=== PATIENT | male | born 1955 | race Hispanic/Latino ===

== ENCOUNTER 2017-10-23 09:36 | Emergency (ER) | payer MEDICARE, BC ==
[2017-10-23] MEDS ORDERED: Nitroglycerin 2% Ointment 1 INCH/1 GM Packet ONE (10:03)
--- NOTE | 2017-10-23 10:28 | RAD ---
FRONTAL RADIOGRAPH CHEST: Date: 10/23/17 COMPARISON: 09/30/15. HISTORY: Chest pain, dialysis patient. FINDINGS: There is prominence of the cardiac silhouette, stable. There is stable elevation of the right hemidia phragm. Stable midline sternotomy wires are noted. No lobar consolidation or alveolar edema. IMPRESSION: Stable appearance of the chest. No acute findings. POS: [facility]
[2017-10-23 10:32] LABS: INR-International Normal Ratio 1.1; PTT 32.5 SEC (22.9-36.1); Prothrombin Time 14.5 SEC (12.0-14.7)
[2017-10-23 10:51] LABS: ALT (SGPT) 15 U/L (8-55); AST (SGOT) 11 U/L (5-34); Albumin 4.2 g/dL (3.4-4.8); Alkaline Phosphatase 85 U/L (40-150); Anion Gap 18 mmol/L (10-20); BUN (Urea Nitrogen) 23 mg/dL (8.4-25.7); Bilirubin, Total 0.7 mg/dL (0.2-1.2); CK (CPK) 145 U/L (30-200); Calc. Creatinine Clearance 0 mL/min (70-130); Calcium 9.6 mg/dL (7.8-10.44); Carbon Dioxide 29 mmol/L (23-31); Chloride 92 mmol/L (98-107); Estimated GFR-MDRD 9; Glucose 153 mg/dL (80-115); Lipase 81 U/L (8-78); Potassium 3.6 mmol/L (3.5-5.1); Protein, Total 8.2 g/dL (5.8-8.1); Sodium 135 mmol/L (136-145)
[2017-10-23 10:55] LABS: CKMB 2.8 ng/mL (0-6.6)
[2017-10-23 10:57] LABS: #Eosinphils 0.1 thou/uL (0.0-0.7); #Lymphocytes 0.8 thou/uL (1.20-3.40); #Monocytes 0.4 thou/uL (0.11-0.59); #Neutrophils 5.2 thou/uL (1.40-6.50); %Basophils 0.4 % (0.0-1.0); %Eosinophils 1.1 % (0.0-10.0); %Lymphocytes 12.2 % (21.0-51.0); %Monocytes 5.8 % (0.0-10.0); %Neutrophils 80.6 % (42.0-75.0); Hemoglobin 12.6 g/dL (14.0-18.0); Large Platelets SLIGHT; MDiff Complete? YES; Mean Corpuscular HGB CONC 32.7 g/dL (32.0-36.0); Mean Corpuscular Hemoglobin 30.3 pg (27.0-31.0); Mean Corpuscular Volume 92.6 fl (80.0-94.0); Mean Platelet Volume 10.2 fL (7.4-10.4); PLT Morphology Comment Appears Decreased; Platelet Count 106 thou/uL (130-400); RBC Distribution Width 14.3 % (11.5-14.5); Red Blood Cell (RBC) Count 4.15 mill/uL (4.70-6.10); White Blood Cell (WBC) Count 6.4 thou/uL (4.8-10.8)
== END 2017-10-23 12:36 | disposition home or self-care (01) ==
LOC: ERS 09:36
DX: R07.89 Other chest pain (principal); I25.10 Atherosclerotic heart disease of native coronary artery without angina pectoris; E11.9 Type 2 diabetes mellitus without complications; E78.5 Hyperlipidemia, unspecified; I11.0 Hypertensive heart disease with heart failure; I50.9 Heart failure, unspecified; Z79.4 Long term (current) use of insulin; Z79.899 Other long term (current) drug therapy; Z79.82 Long term (current) use of aspirin; Z99.2 Dependence on renal dialysis
CPT/HCPCS: 36415; 36416; 71045; 80053; 82553; 83690; 83880; 84484; 85025; 85610; 85730; 93005; 94760

== ENCOUNTER 2017-12-10 22:07 | Inpatient (IN) | payer MEDICARE, BC ==
[2017-12-10 22:30] LABS: Bilirubin Negative (Negative); Blood, Urine Large (Negative); Clarity TURBID (Clear); Glucose, Urine (Dipstick) 500 mg/dL (Negative); Leukocyte Trace (Negative); Nitrite Negative (Negative); Protein, Urine (Dipstick) 300 mg/dL (Neg-Trace); Specific Gravity, Urine 1.021 (1.002-1.036); Urobilinogen 0.2 mg/dL (0.2-1.0); pH, Urine 7.5 (5.0-9.0)
[2017-12-10 22:31] LABS: White Blood Cell (WBC) Count 11.2 thou/uL (4.8-10.8)
[2017-12-10 22:31] LABS: Bacteria/HPF 3+ HPF (None Seen); Squamous Epithelial 0-3 HPF (0-3)
[2017-12-10 22:32] LABS: Pathc Cast-AUWi Flag 3.11 (0-2.49); Sperm-AUWi Flag 16322.9 (0-9.9)
[2017-12-10 22:32] LABS: #Eosinphils 0.1 thou/uL (0.0-0.7); #Lymphocytes 1.1 thou/uL (1.20-3.40); #Monocytes 0.8 thou/uL (0.11-0.59); #Neutrophils 9.2 thou/uL (1.40-6.50); %Basophils 0.2 % (0.0-1.0); %Eosinophils 1.1 % (0.0-10.0); %Lymphocytes 10.2 % (21.0-51.0); %Monocytes 7.1 % (0.0-10.0); %Neutrophils 81.4 % (42.0-75.0); Hemoglobin 10.1 g/dL (14.0-18.0); Mean Corpuscular HGB CONC 32.8 g/dL (32.0-36.0); Mean Corpuscular Hemoglobin 30.2 pg (27.0-31.0); Mean Corpuscular Volume 91.9 fl (80.0-94.0); Mean Platelet Volume 9.6 fL (7.4-10.4); Platelet Count 104 thou/uL (130-400); RBC Distribution Width 14.3 % (11.5-14.5); Red Blood Cell (RBC) Count 3.34 mill/uL (4.70-6.10)
--- NOTE | 2017-12-10 22:39 | RAD ---
CHEST ONE VIEW: 12/10/17 HISTORY: Sepsis. COMPARISON: 10/23/17. FINDINGS: The cardiac silhouette is magnified and upper limits of normal in size. Pulmonary vasculature is slig htly engorged. Mediastinum is midline with postoperative changes and coronary artery stents. There is no lobar consolidation or evidence of pneumothorax. IMPRESSION: Mild pulmonary vascular congestion. POS: [facility]
[2017-12-10 22:40] LABS: Sperm/HPF 4+ HPF (None Seen)
[2017-12-10 22:41] LABS: RBC/HPF 21-50 HPF (0-3)
[2017-12-10 22:42] LABS: Hyaline Casts/LPF 0-3 HYALINE CAST LPF (0-3 Hyaline)
[2017-12-10 22:58] LABS: ALT (SGPT) 43 U/L (8-55); AST (SGOT) 26 U/L (5-34); Albumin 3.9 g/dL (3.4-4.8); Alkaline Phosphatase 147 U/L (40-150); Anion Gap 17 mmol/L (10-20); BUN (Urea Nitrogen) 51 mg/dL (8.4-25.7); Bilirubin, Total 0.5 mg/dL (0.2-1.2); Calc. Creatinine Clearance 0 mL/min (70-130); Calcium 9.4 mg/dL (7.8-10.44); Carbon Dioxide 28 mmol/L (23-31); Chloride 93 mmol/L (98-107); Estimated GFR-MDRD 4; Globulin 3.8 g/dL (2.4-3.5); Glucose 126 mg/dL (80-115); Protein, Total 7.7 g/dL (5.8-8.1); Sodium 133 mmol/L (136-145)
--- NOTE | 2017-12-10 23:03 | CT ---
CT HEAD NONCONTRAST 12/10/17 HISTORY: Fall. Head injury. COMPARISON: 04/19/14. FINDINGS: There is no evidence of acute intracranial hemorrhage or infarct. Diffuse cortical atrophy and chron ic ischemic small vessel disease are again demonstrated. Old lacunar infarct at the left basal gangli a is stable. There is no mass effect or shift of midline structures. The visualized paranasal sinuses remain well aerated. IMPRESSION: No acute intracranial abnormalities are demonstrated. POS: [facility]
[2017-12-10] MEDS ORDERED: Acetaminophen 500 MG TAB ONE (23:20)
[2017-12-10] MEDS ORDERED: Cefepime 2 GM/10 ML SYR ONE (23:31)
[2017-12-11] MEDS ORDERED: Ondansetron ODT 4 MG TAB SL PRN (00:36)
[2017-12-11] MEDS ORDERED: Acetaminophen 325 MG TAB PO PRN (00:36)
[2017-12-11] MEDS ORDERED: Ondansetron HCl/PF 4 MG/2 ML Vial IVP PRN ×2 (00:36→02:01)
[2017-12-11] MEDS ORDERED: Ondansetron ODT 4 MG TAB PO PRN (02:01)
[2017-12-11] MEDS ORDERED: cloNIDine 0.1 MG TAB PO PRN (02:01)
[2017-12-11] MEDS ORDERED: Dextrose 5% in Water 1,000 ML IV PRN (02:01)
[2017-12-11] MEDS ORDERED: hydrALAZINE 20 MG/ML VIAL SLOW IVP PRN (02:01)
[2017-12-11] MEDS ORDERED: Vancomycin HCl 1.25 GM in Sodium Chloride 0.9% 250 ML 250 ML IVPB PRN (02:39)
[2017-12-11] MEDS ORDERED: Vancomycin HCl 1 GM in Premix Bag 1 BAG IVPB PRN (02:40)
[2017-12-11] MEDS ORDERED: Vancomycin HCl 500 MG in Sodium Chloride 0.9% 100 ML IVPB PRN (02:40)
[2017-12-11] MEDS ORDERED: HOLD VANCOMYCIN FOR LEVEL >20 FS PRN (02:41)
[2017-12-11 02:53] LABS: Anion Gap 20 mmol/L (10-20); BUN (Urea Nitrogen) 54 mg/dL (8.4-25.7); Calc. Creatinine Clearance 9 mL/min (70-130); Calcium 9.2 mg/dL (7.8-10.44); Carbon Dioxide 26 mmol/L (23-31); Chloride 93 mmol/L (98-107); Estimated GFR-MDRD 4; Glucose 65 mg/dL (80-115); Potassium 5.1 mmol/L (3.5-5.1); Sodium 134 mmol/L (136-145)
[2017-12-11 03:07] LABS: Eosinophils 1 % (0-10); Hemoglobin 10.1 g/dL (14.0-18.0); Lymphocytes 12 % (21-51); MDiff Complete? YES; Mean Corpuscular HGB CONC 32.9 g/dL (32.0-36.0); Mean Corpuscular Hemoglobin 30.4 pg (27.0-31.0); Mean Corpuscular Volume 92.5 fl (80.0-94.0); Mean Platelet Volume 9.4 fL (7.4-10.4); Metamyelocyte 1 % (0-0); Monocytes 8 % (0-10); Neutrophil 76 % (42-75); PLT Morphology Comment Appears Decreased; Platelet Count 108 thou/uL (130-400); RBC Distribution Width 14.4 % (11.5-14.5); RBC Morphology Normal; Reactive Lymphocytes 2 % (0-10); Red Blood Cell (RBC) Count 3.31 mill/uL (4.70-6.10); White Blood Cell (WBC) Count 11.5 thou/uL (4.8-10.8)
[2017-12-11] MEDS ORDERED: Vancomycin HCl 1.75 GM in Sodium Chloride 0.9% 500 ML IVPB SCH (04:00)
[2017-12-11] MEDS: Acetaminophen 500 MG TAB PO PRN ×3 (04:19→15:47)
--- NOTE | 2017-12-11 05:45 | HP ---
DATE OF ADMISSION: 12/11/2017 PRIMARY CARE PROVIDER: Tony Zavaleta M.D. PRIMARY DRIER BELT CONVEYOR: Amadou Castro M.D. CHIEF COMPLAINT: Confusion and altered mental status. HISTORY OF PRESENT ILLNESS: This is a 62-year-old male who presents to [facility] accompanied by his who relates the majority the majority of the history as patient is unable to provide any coherent history due to altered mentation. The reports the patient ap parently fell two times over the last 5 to 6 days with the most recent fall within the last 24 hours. The patient apparently was getting out of bed approximately 3:00 a.m. on 12/10/2017, when he struck his face and the right side of his nose. The patient was noted with swelling on the face and confus ed and lethargic. The reports patient had a fall on 12/07/2017, after apparently celebrating fo r his birthday. The patient did not sustain any specific localized injury and was evaluated in the e mergency room on 12/07/2017. The reports the patient was noted confused that was persistent and had difficulty ambulating. The patient also felt warm to touch, but the did not take his tempe rature or documented fever. No specific travel history, exposure or family members with similar symp toms. The patient's history is significant for end-stage renal disease, receiving dialysis on Saturday , Saturday, Saturday and was appropriately dialyzed on those days in the week preceding of this admiss ion. The patient did not receive any current vaccinations other than a flu vaccination at the [facility]. No specific change to his chronic medications are reported. The patient nor wanda is ambulatory with the use of a rolling walker or cane; however, the reports this is not c onsistent. In the emergency room, the patient underwent general evaluation including CT imaging of t he brain showing no acute intracranial process. The patient was noted with a fever of 101.6 as well as altered mentation and elevated white blood cell count in the 12,000 range. The patient was suspec mulu for early sepsis and given IV cefepime and Tylenol. The patient was transferred to the [facility] ate Care Unit for further evaluation and monitoring. PAST MEDICAL HISTORY: 1. End-stage renal disease with hemodialysis Saturday, Saturday, and Saturday. 2. Hypertension. 3. Dyslipidemia. 4. Diabetes mellitus type 2, insulin requiring. 5. Coronary artery disease. 6. Gastroesophageal reflux disease. 7. History of falls. PAST SURGICAL HISTORY: 1. Status post multiple dialysis access procedures in the left upper extremity. 2. Status post hemicolectomy. 3. Status post appendectomy. 4. Status post cholecystectomy. 5. Status post hernia repairs. 6. Status post small-bowel obstruction with resection. 7. Status post hernia repair with dehiscence requiring wound VAC application. 8. Status post cardiac stent placement x2. 9. Status post left rotator cuff repair. CURRENT MEDICATIONS: 1. Tylenol No. 3, 300/30 mg one to two tabs p.o. q.6 hours p.r.n. pain. 2. Elavil 25 mg p.o. daily. 3. Amlodipine 10 mg p.o. daily. 4. Enteric coated aspirin 81 mg p.o. daily. 5. Lipitor 20 mg p.o. at bedtime. 6. PhosLo 667 mg p.o. t.i.d. 7. Coreg 25 mg p.o. b.i.d. 8. Zyrtec 10 mg p.o. daily. 9. Vitamin D3 2000 units p.o. daily. 10. Plavix 75 mg p.o. daily. 11. Procrit 7500 units subcutaneously weekly. 12. Gabapentin 600 mg p.o. b.i.d. and 600 mg p.o. at bedtime. 13. Humalog 3-18 units subcutaneously a.c. and at bedtime. 14. Hydralazine 25 mg p.o. t.i.d. 15. Imdur 30 mg p.o. daily. 16. Amitiza 8 mcg p.o. b.i.d. 17. Reglan 10 mg p.o. t.i.d. 18. Ranitidine 150 mg p.o. daily. 19. Timoptic 0.5% 1 drop to each eye daily. 20. Tramadol 50 mg p.o. every 6 hours p.r.n. pain. 21. Coenzyme Q10 100 mg p.o. daily. ALLERGIES: BANANAS and PENICILLIN. FAMILY HISTORY: Positive for diabetes and hypertension. SOCIAL HISTORY: The patient is , accompanied by his in the hospital. No current alcohol , tobacco or illicit drug use. Ambulates with the use of rolling walker or cane. History of falls x 2. REVIEW OF SYSTEMS: The following complete review of systems was negative, unless otherwise mentioned in the HPI or below: Constitutional: Weight loss or gain, ability to conduct usual activities. Skin: Rash, itching. Eyes: Double vision, pain. ENT/Mouth: Nose bleeding, neck stiffness, pain, tenderness. Cardiovascular: Palpitations, dyspnea on exertion, orthopnea. Respiratory: Shortness of breath, wheezing, cough, hemoptysis, fever or night sweats. Gastrointestinal: Poor appetite, abdominal pain, heartburn, nausea, vomiting, constipation, or diarr hea. Genitourinary: Urgency, frequency, dysuria, nocturia. Musculoskeletal: Pain, swelling. Neurologic/Psychiatric: Anxiety, depression. Allergy/Immunologic: Skin rash, bleeding tendency. Otherwise negative except as stated per HPI. PHYSICAL EXAMINATION: VITAL SIGNS: On admission, blood pressure 174/84, pulse 92, respiratory rate is 18, temperature 101. 6 degrees Fahrenheit, O2 saturation 94% on room air. GENERAL APPEARANCE: This is a 62-year-old male, somnolent, difficult to arouse, in no acute distress. HEENT: Pupils are equal, round, and reactive to light and accommodation. Extraocular muscles are in tact. No scleral icterus, no conjunctival injection. Nares patent. OP is clear. Mild edema of the nose and right face. NECK: Supple, no cervical adenopathy, no thyromegaly, no carotid bruits, no JVD appreciated. Cervic al spine with full active and passive range of motion. CHEST: Lungs are clear to auscultation bilaterally. CARDIOVASCULAR: S1, S2, without noted murmur. ABDOMEN: Obese, soft, nontender, nondistended. Bowel sounds are positive in all four quadrants. Th ere is no hepatosplenomegaly, no abdominal bruits, no rebound or guarding appreciated. EXTREMITIES: Warm and dry with fair turgor. Mild pitting edema to the ankle region bilaterally. Pu lses palpable distally at the dorsalis pedis, posterior tibial, and popliteal arteries bilaterally. Capillary refill less than 2 seconds. NEUROLOGIC: The patient lethargic, difficult to arouse. Localizes to pain during phlebotomy and pin prick. Mumbles inaudible words. PERTINENT LABORATORY DATA AND X-RAY FINDINGS: Sodium 133, potassium 5.0, chloride 93, CO2 of 28, BUN 51, creatinine 12.52, estimated GFR of 4, glucose 126. Lactate 0.9. LFTs within normal limits. CB C showed a white blood cell count of 11.2, hemoglobin 10, hematocrit 31, platelet count 104 with 81% neutrophils. Influenza A and B antigen dated 12/10/2017 negative. Portable chest x-ray dated 2017 showed mild pulmonary vascular prominence. CT of the brain without contrast dated 12/10/2017 sh owed no acute intracranial process. EKG dated 12/10/2017 by my interpretation shows sinus mechanism with heart rates in the 90s. Right bundle branch block and left anterior fascicular block noted. Le ft axis deviation. No acute ST-T wave changes noted. ASSESSMENT AND PLAN: 1. Sepsis. Suspect underlying infectious process. Blood and urine cultures pending. We will blanche nue general sepsis protocol. The patient noted with encephalopathy, elevated white blood cell count and febrile. We will continue general sepsis protocol. Continue empiric antibiotic coverage with ce fepime and vancomycin. Unclear source currently. 2. Acute encephalopathy secondary to sepsis. We will continue general supportive measures. Treat u nderlying likely infectious process. Monitor for improvement. 3. Status post mechanical fall. CT imaging of the brain was negative for an acute process. Obtain PT evaluation for functional assessment. General fall risk precautions. 4. End-stage renal disease with hemodialysis. We will consult Nephrology Service for hemodialysis d uring the hospital course. No current evidence to suggest acute volume overload. 5. Diabetes mellitus type 2, insulin requiring. We will provide insulin sliding scale for reflexive coverage. Accu-Cheks a.c. and at bedtime. 6. Chronic normocytic anemia secondary to chronic kidney disease. We will continue serial H and H m onitoring. No specific evidence of acute blood loss. Repeat CBC in the a.m. 7. Prophylaxis. Sequential compression devices while in bed. Pepcid 20 mg p.o. b.i.d. 8. Code status is FULL. Surrogate medical decision maker is patient's spouse.
[2017-12-11] MEDS: Dextrose 50% Abboject 50 ML SYRINGE SLOW IVP PRN (06:48)
[2017-12-11] MEDS ORDERED: Gabapentin 300 MG CAP PO SCH ×2 (09:00→21:00)
[2017-12-11] MEDS ORDERED: Cefepime 2 GM in Sodium Chloride 0.9% 100 ML IVPB SCH ×2 (09:00→11:00)
[2017-12-11] MEDS ORDERED: Epoetin (ESRD) 20,000 UNITS/ML SC SCH (09:00)
[2017-12-11] MEDS: Lubiprostone 8 MCG CAP PO SCH ×2 (09:27→21:24)
[2017-12-11] MEDS: Calcium Acetate 667 MG CAP PO SCH ×3 (09:27→21:24)
[2017-12-11] MEDS: Amlodipine 10 MG TAB PO SCH (09:28)
[2017-12-11] MEDS: Famotidine 20 MG TAB PO SCH (09:28)
[2017-12-11] MEDS: Carvedilol 25 MG TAB PO SCH ×2 (09:29→15:47)
[2017-12-11] MEDS: hydrALAZINE 25 MG TAB PO SCH ×3 (09:29→21:25)
[2017-12-11] MEDS: Timolol 0.5% Ophth Soln 5 ml Bottle EA EYE SCH ×2 (09:30→15:41)
[2017-12-11] MEDS: Clopidogrel Bisulfate 75 MG TAB PO SCH (09:30)
--- NOTE | 2017-12-11 10:04 | CON ---
DATE OF CONSULTATION: 12/11/2017 HISTORY OF PRESENT ILLNESS: Mr. Reynolds is a 62-year-old male with known history of ESRD - on maintenance hemodialysis and was admitted for confusion and decreased mentation. He was also not ed to be febrile at that time. For that reason, he has been empirically started on IV antibiotics. We are being consulted for his maintenance hemodialysis. According to the , patient has been heather ing pain medications, Tylenol with Codeine 1-2 tablets every 6 hours. This was given when he had a f all and had some body contusion. REVIEW OF SYSTEMS: Not obtainable since the patient is lethargic and not following my commands. MEDICATIONS: Amlodipine 10 mg daily, aspirin 81 mg tab once a day, PhosLo 667 mg 1 tab t.i.d. with m eals, Coreg 25 mg p.o. b.i.d., cefepime 1 gram IV daily, Catapres 0.1 mg q.4 h. p.r.n., Plavix 75 mg daily, Procrit 7500 units subcu every week, Pepcid 20 mg daily, Neurontin 600 mg p.o. at bedtime, glu cagon p.r.n., hydralazine 10 mg IV q.4 h. p.r.n., hydralazine 25 mg p.o. t.i.d., Humalog sliding scal e, Amitiza 8 mcg p.o. b.i.d., status post vancomycin. PAST MEDICAL HISTORY: 1. ESRD - currently on maintenance hemodialysis Saturday, Saturday, and Saturday. 2. Coronary artery disease. 3. Status post CHF. 4. Type 2 diabetes mellitus. 5. Diabetic nephropathy. 6. Hypertension. 7. Hyperlipidemia. 8. Diabetic neuropathy. 9. DJD. PAST SURGICAL HISTORY: 1. Status post colon resection. 2. Status post colonoscopy. 3. Status post cuffed dialysis catheter placement. 4. Status post AV fistula placement. 5. Status post cardiac catheterization. 6. Status post coronary stent placement. 7. Status post exploratory laparotomy secondary to intestinal obstruction. 8. Status post umbilical hernia repair. 9. Status post bilateral inguinal hernia repair. 10. Status post left shoulder rotator cuff injury repair. 11. Status post cholecystectomy. 12. Status post upper GI endoscopy. ALLERGIES: PENICILLIN. TRAUMA: Status post right wrist fracture. IMMUNIZATIONS: Up to date. HOSPITALIZATIONS: Please see past medical history. FAMILY HISTORY: Positive family history of ESRD. 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 Seden tary lifestyle. No drug abuse. Lives in [place]. Status post blood transfusion. No history of smoki ng. PHYSICAL EXAMINATION: VITAL SIGNS: Blood pressure is 108/51, heart rate 71, respiratory rate 14, temperature 102.1, pulse ox 100%. GENERAL: Sleepy, but arousable, not in distress. SKIN: Adequate turgor. HEENT: Slightly pale conjunctivae, anicteric sclerae. NECK: No neck mass, no carotid bruits, no JVD. CHEST: No deformities. LUNGS: Clear breath sounds, no wheezing, no crackles. HEART: Normal sinus rhythm. No murmur, no gallops or rubs. ABDOMEN: Globular, soft, nontender, no masses. EXTREMITIES: No edema, no deformities. LABORATORY DATA: Of 12/11/2017, white count 11.5, hemoglobin 10.1. Sodium 134, potassium 5.1, chlor inez 93, carbon dioxide 26, BUN 54, creatinine 12.71, glucose 65, calcium 9.2. CT scan of the brain, no acute intracranial abnormality. On 12/10/2017, chest x-ray, mild increase i n lung markings. ASSESSMENT AND PLAN: 1. End-stage renal disease - my plan is to continue her current continuous current maintenance hemod ialysis Saturday, Saturday, and Saturday. Again, fluid removal as tolerated by the patient. I will pro bably attempt a 3-liter fluid removal with this patient in a background of some degree of mild conges tive heart failure on chest x-ray. 2. Decreased mentation and sleepiness. I agree to hold off Tylenol with Codeine. At the same time, I will probably discontinue the gabapentin. This may be playing a role. 3. Fever - unclear etiology. Empiric antibiotics with this patient. I agree with current management.
--- NOTE | 2017-12-11 12:47 | PDOC.PN ---
- Subjective Encounter Start Date: 12/11/17 Encounter Start Time: 09:55 Subjective: HD is being arranged at bedside -: has abd dyscomfort, ate this am -: last bm was yesterday, no diarrhea - Objective Resuscitation Status: Resuscitation Status FULL:Full Resuscitation MAR Reviewed: Yes Vital Signs & Weight: Vital Signs (12 hours) Temp Pulse Resp BP BP Pulse Ox 12/11/17 12:00 97.6 F 67 20 101/65 100 12/11/17 09:30 71 12/11/17 09:29 71 12/11/17 09:28 71 138/67 12/11/17 04:00 102.1 F H 71 14 108/51 L 100 I&O: 12/10/17 12/11/17 12/12/17 06:59 06:59 06:59 Intake Total 460 240 Output Total 0 Balance 460 240 Result Diagrams: 12/11/17 02:13 12/11/17 02:13 Additional Labs: Accuchecks 12/11/17 12/11/17 12/11/17 11:39 09:24 06:45 POC Glucose 89 72 45 L* Phys Exam - Physical Examination HEENT: PERRLA, moist MMs Neck: no JVD, supple Respiratory: no wheezing rales++ Cardiovascular: RRR, no significant murmur Gastrointestinal: soft, positive bowel sounds distention++ Musculoskeletal: pulses present, edema present Neurological: non-focal, moves all 4 limbs lethargic but responds to verbal stimuli Dx/Plan (1) Sepsis Code(s): A41.9 - SEPSIS, UNSPECIFIED ORGANISM Status: Acute Qualifiers: Sepsis type: sepsis due to unspecified organism Qualified Code(s): A41.9 - Sepsis, unspecified organism (2) Volume overload Code(s): E87.70 - FLUID OVERLOAD, UNSPECIFIED Status: Acute (3) ESRD (end stage renal disease) on dialysis Code(s): N18.6 - END STAGE RENAL DISEASE; Z99.2 - DEPENDENCE ON RENAL DIALYSIS Status: Chronic (4) Obesity (BMI 30-39.9) Code(s): E66.9 - OBESITY, UNSPECIFIED Status: Chronic (5) DM type 2 (diabetes mellitus, type 2) Status: Chronic Qualifiers: Diabetes mellitus complication status: with hypoglycemia 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 PT to mobilize as tolerated, pt is ?blind needs extra precaution. Review of Systems - Medications/Allergies Allergies/Adverse Reactions: Allergies Allergy/AdvReac Type Severity Reaction Status Date / Time banana [Banana] Allergy Verified 04/19/14 19:13 Penicillins Allergy Verified 09/06/13 14:16 Medications: Current Medications Acetaminophen (Tylenol) 1,000 mg PO Q6H PRN PRN Reason: Headache/Fever or Mild Pain Last Admin: 12/11/17 09:23 Dose: 1,000 mg Amlodipine Besylate (Norvasc) 10 mg PO DAILY [facility] Last Admin: 12/11/17 09:28 Dose: 10 mg Aspirin (Aspirin Chewable) 81 mg PO DAILY [facility] Last Admin: 12/11/17 09:27 Dose: 81 mg Calcium Acetate (Phoslo) 667 mg PO TID [facility] Last Admin: 12/11/17 09:27 Dose: 667 mg Carvedilol (Coreg) 25 mg PO BID[facility] Last Admin: 12/11/17 09:29 Dose: 25 mg Clonidine (Catapres) 0.1 mg PO Q4H PRN PRN Reason: Systolic BP > 180 Clopidogrel Bisulfate (Plavix) 75 mg PO DAILY [facility] Last Admin: 12/11/17 09:30 Dose: 75 mg Dextrose/Water (Dextrose 50%) 25 gm SLOW IVP PRN PRN PRN Reason: Hypoglycemia Last Admin: 12/11/17 06:48 Dose: 25 gm Epoetin Branden (Procrit) 7,500 units SC Q7D [facility] Last Admin: 12/11/17 12:13 Dose: 7,500 units Famotidine (Pepcid) 20 mg PO DAILY [facility] Last Admin: 12/11/17 09:28 Dose: 20 mg Glucagon (Glucagon) 1 mg IM PRN PRN PRN Reason: Hypoglycemia Hydralazine HCl (Apresoline) 10 mg SLOW IVP Q4H PRN PRN Reason: Systolic BP > 180 Hydralazine HCl (Apresoline) 25 mg PO TID [facility] Last Admin: 12/11/17 09:29 Dose: Not Given Dextrose/Water (D5w) 1,000 mls @ 0 mls/hr IV .Q0M PRN; As Directed PRN Reason: Hypoglycemia Cefepime HCl 1 gm/ Syringe 10 mls @ 120 mls/hr SLOW IVP Q24HR@2100 TIA Vancomycin HCl 1.25 gm/ Sodium (Chloride) 250 mls @ 166.667 mls/hr IVPB WILLCALL PRN PRN Reason: IF VANC LEVEL <= 5.0 Vancomycin HCl 1 gm/ Device 200 mls @ 200 mls/hr IVPB WILLCALL PRN PRN Reason: IF VANC LEVEL >5 AND <=10 Vancomycin HCl 750 mg/ Sodium (Chloride) 250 mls @ 250 mls/hr IVPB WILLCALL PRN PRN Reason: IF VANC LEVEL >10 AND <= 15 Vancomycin HCl 500 mg/ Sodium (Chloride) 100 mls @ 100 mls/hr IVPB WILLCALL PRN PRN Reason: IF VANC LEVEL >15 AND <=20 Influenza Virus Vaccine (Fluzone Quad [id number] Syringe) 0.5 ml IM .ONCE ONE Stop: 12/12/17 09:01 Insulin Human Lispro (Humalog) 0 units SC .MILD SLIDING SCALE PRN PRN Reason: Mild Correctional Scale Insulin Human Lispro (Humalog) 0 units SC .BEDTIME SLIDING SC PRN PRN Reason: Bedtime Correctional Scale Lubiprostone (Amitiza) 8 mcg PO BID [facility] Last Admin: 12/11/17 09:27 Dose: 8 mcg Metoclopramide HCl (Reglan) 10 mg PO TIDPRN PRN PRN Reason: Nausea Hold Vancomycin For (Level >20) 0 each FS .AT DIALYSIS PRN PRN Reason: HOLD VANC IF LEVEL > 20 Ondansetron HCl (Zofran Odt) 4 mg PO Q6H PRN PRN Reason: Nausea/Vomiting Ondansetron HCl (Zofran) 4 mg IVP Q6H PRN PRN Reason: Nausea/Vomiting Pneumococcal Polyvalent Vaccine (Pneumovax 23) 0.5 ml IM .ONCE ONE Stop: 12/12/17 09:01 Timolol Maleate ([facility]) 1 drop EA EYE DAILY [facility] Last Admin: 12/11/17 09:30 Dose: Not Given
--- NOTE | 2017-12-11 13:04 | PQF ---
DATE: 12-11-17 ATTN: DR. CAM RUIZ Please exercise your independent, professional judgment in responding to the clarification form. Clinical indicators are provided on the bottom of this form for your review Please check appropriate box(s): [ ] UTI [ ] Contaminated urine specimen without UTI [ ] Other diagnosis [ x ] Unable to determine In addition, please specify: Present on Admission (POA): [ ] Yes [ ] No [ ] Unable to determine For continuity of documentation, please document condition throughout progress notes and discharge summary. Thank You. CLINICAL INDICATORS - SIGNS / SYMPTOMS / LABS LAB URINE: 12-10-17: URINE PROTEIN: 300 H URINE GLUCOSE 500 H URINE BLOOD LARGE H UR LEUKOCYTE ESTERASE TRACE H URINE RBC 21-50 H URINE WBC: GREATER THAN 50 TNTC H URINE BACTERIA 3+ H RISK FACTORS: H&P: CONFUSED AND LETHARGIC, ACUTE ENCEPHALOPATHY, SEPSIS, HEMODIALYSIS PT TREATMENT: (MAR ) MAXIPIME, VANCOMYCIN (This form is maintained as a part of the permanent medical record) 2014 [employer]. All Rights Reserved [email or web address] Office: [phone] [email or web address]
--- NOTE | 2017-12-11 14:15 | CON ---
DATE OF CONSULTATION: 12/11/2017 REASON FOR CONSULTATION: Possible sepsis. HISTORY OF PRESENT ILLNESS: A 62-year-old patient who has a history of end-stage renal disease seckiran maey to type 2 diabetes mellitus, being dialyzed through a left upper extremity AV fistula as well as ischemic heart disease with previous stenting and myocardial infarctions brought in by because of episodes of falls associated with altered mental status. The patient fell the last one was yester day at 3 in the morning and he struck the side of his face and right side of his nose and the patient was brought to the emergency room. Initial vital signs: BP 174/84, pulse 92, respirations 18, temp erature 101.6, O2 sat 94%. The pertinent findings on the physical examination: Lungs: Clear. Hear t: Without any abnormalities. Abdomen: Nontender. He was lethargic and difficult to arouse. Initial laboratory data included a w madhu cell count of 11.2, hemoglobin 10, platelets 104,000 with 81% neutrophils. Sodium of 133, creat inine 12, potassium 5.0. Liver profile normal. Albumin 3.9. Urinalysis with greater than 50 wbcs. Influenza A was negative for antigen. Blood cultures negative. The patient was transferred to the [facility] and started on broad spectrum coverage with cefepime and vancomycin. Currently, he is more aler t. He has some dysarthria from tenderness and swelling of the upper lip, probably from the traumatic injury. He has some pain around the eye sockets probably from the fall and contusion to the facial area, some headaches, no sore throat, odynophagia, dysphagia, no toothache, no back pain, no dyspnea or chest pain, mild abdominal tenderness which is diffuse, does not have urinary output. No diarrhea , no bleeding. PAST MEDICAL HISTORY: End-stage renal disease, diabetes mellitus type 2, hemodialysis with AV fistul a, hypertension, dyslipidemia, coronary artery disease with prior stenting and myocardial infarction, and GERD. PAST SURGICAL HISTORY: Includes hemicolectomy, appendectomy, cholecystectomy, hernia repair, cardiac stent, rotator cuff repair. MEDICATIONS: Currently receiving Tylenol, Norvasc, aspirin, PhosLo, Coreg, cefepime, clonidine, Plav ix, Procrit, Pepcid, glucagon, Apresoline, Fluzone, insulin, Amitiza, Reglan, vancomycin, and sliding scale. ALLERGIES: PENICILLIN with rash. FAMILY HISTORY: Diabetes mellitus type 2, hypertension. SOCIAL HISTORY: , never smoker. PHYSICAL EXAMINATION: VITAL SIGNS: T-max 102, currently 97.6, blood pressure 101/65, pulse 67, respirations 20, O2 sat 100 %, drowsy, but arousable. He recognized where he was and the date. Follows commands. SKIN: No areas of skin breakdown. The patient has a left upper extremity AV fistula, which is acces sed for dialysis. No lymphadenopathy. Some element of enophthalmos. There is a light yellow secret ions in the right conjunctival area. HEENT: Pupils are equally reactive. Sclerae white. Nasal passages are patent. Patient has tendern ess on palpation of the facial area around the orbits, the nasal bridge, the upper lip and maxilla. Oral cavity is moist, still quite a few teeth in place with the expected decay. NECK: Supple, jugular distention or carotid bruits. LUNGS: With symmetric, clear breath sounds. CARDIOVASCULAR: S1, S2, without murmurs. Regular rate. ABDOMEN: Mildly distended with diffuse mild to moderate tenderness. No ascites. No bladder distent ion. EXTREMITIES: No joint inflammatory activity, able to move extremities on command. Pulses 1+ in dors becca pedis. NEUROLOGIC: Plantar responses are flexor without clonus. He is awake, a little bit drowsy. He has significant dysarthria associated with the likely contusion to the facial area. Otherwise, he is kathleen ented, follows commands. LABORATORY AND X-RAY FINDINGS: Has been reviewed above. Latest white cell count 11.5, hemoglobin 10 , platelets 108 with 76% neutrophils. Two sets of blood cultures thus far negative. Chest x-ray on arrival with no pulmonary infiltrates, mild congestion. ASSESSMENT: 1. End-stage renal disease associated diabetes mellitus type 2, on dialysis through an arteriovenous fistula. 2. Coronary artery disease. 3. Fever with recurrent falls injury/contusion to the facial area. DISCUSSION: Differential diagnosis includes a respiratory tract infection, particularly influenza ve rsus bacteremia of not yet known primary site. He does have diffuse abdominal tenderness and will coffey ve to monitor this and may need imaging studies of the abdomen and pelvis with CT scan. The marked f acial tenderness is probably due to the fall and injury to the facial area. I do not think there is evidence to suggest an inflammatory process there. Continue current regimen and monitor the progress in blood and culture results, focus on the abdominal tenderness, the facial symptoms and the blood c ultures.
--- NOTE | 2017-12-11 14:57 | CON ---
DATE OF SERVICE: 12/11/2017 SERVICE: Pulmonary Medicine. REASON FOR CONSULTATION: CU patient. HISTORY OF PRESENT ILLNESS: The patient is a 62-year-old male who was brought to the emergency department because of confusion and altered mentation. Apparently, he did sustain a fall at some point and is complaining of ongoing left ankle discomfort. He cannot provide why he is actually in the hospital at this time. He currently denies any shortness of breath, chest discomfort, cough or sputum production. In the Emergency Department, he had a minimally elevated white blood cell count and fever. He was admitted to the hospital with IV antibiotics. This morning, his mentation essentially is returning to baseline. There are no specific overnight events. PAST MEDICAL HISTORY: 1. End-stage renal disease. 2. Type 2 diabetes mellitus. 3. Hypertension. 4. Dyslipidemia. 5. Coronary artery disease. 6. Gastroesophageal reflux disease. PAST SURGICAL HISTORY: 1. Dialysis access procedures, multiple. 2. Hemicolectomy. 3. Appendectomy. 4. Cholecystectomy. 5. Herniorrhaphy. 6. Small-bowel obstruction with a history of resection. 7. Hernia repair with dehiscence requiring secondary closure with wound VAC. 8. Left rotator cuff surgery repair. 9. Percutaneous coronary intervention x2. ALLERGIES: BANANA and PENICILLIN. MEDICATIONS: List of his inpatient medications was reviewed. FAMILY HISTORY: Noncontributory. SOCIAL HISTORY: The patient is . Functional status is little bit limited. He gets around with walker and/or cane. They deny any alcohol or illicit drug use. He has no exposure to chemicals, dust asbestos or tuberculosis. REVIEW OF SYSTEMS: General, head, ears, eyes, nose, throat, cardiovascular, respiratory, GI, , musculoskeletal, neurologic and skin is negative except as mentioned in the HPI. PHYSICAL EXAMINATION: VITAL SIGNS: Afebrile, pulse 67, blood pressure 101/65, respirations 20, saturation 100% on room air. GENERAL: The patient is awake, alert, no apparent distress. LUNGS: Decent air entry. There is a little bit of a prolonged expiratory phase. Dependently there are some crackles. HEART: Normal rate, regular. ABDOMEN: Fairly firm, but he tells me that he is nontender. There is no rebound or guarding. Bowel sounds are active. GENITOURINARY: No Rice. NEUROLOGIC: Grossly nonfocal. LABORATORY DATA: WBC 11.5, hemoglobin 10.1, platelets 108,000. Creatinine 12.71. BUN 54. Basic metabolic profile is otherwise unremarkable. Glucose 45 previously, but it is currently 89. Lactate is negative x2. Liver function studies are completely unremarkable. Blood cultures x2, influenza A and B are negative. IMAGIN. CT of the head demonstrates no acute intracranial abnormality. 2. Chest x-ray demonstrates reticular nodular pattern throughout bilateral lung treviño. Pulmonary vascular congestion is present. There is fluid in the fissure. There is cephalization present throughout the hilum. ASSESSMENT: 1. Severe sepsis. 2. Metabolic encephalopathy, improving. 3. End-stage renal disease. PLAN: X-ray of the left foot. We will continue empiric antibiotics while we await culture results. Otherwise, supportive care measures will be continued. Pulmonary or Critical Care will continue to follow. We remain in this location , but truth be told, he is likely stable for transition to the floor. We will watch his abdomen. If he has increasing tenderness, imaging of this will be considered. 70 minutes have been devoted to this patient in various activities. I personally reviewed all imaging studies and laboratory data noted within this document. For greater than fifty percent of this time, I was interacting with the patient at the bedside or coordinating care with the care team. For the remainder of the time I was immediately available to the patient in the hospital unit. AMADOR
--- NOTE | 2017-12-11 15:35 | RAD ---
THREE VIEWS OF THE LEFT ANKLE: 12/11/17 HISTORY: Left ankle pain after a fall. FINDINGS: Ankle mortise is congruent. There is no fracture or dislocation seen. Vascular calcifications are see n about the ankle and foot. IMPRESSION: No acute osseous abnormality left ankle. POS: [facility]
[2017-12-11] MEDS: Cefepime 1 GM in Syringe 10 ML SLOW IVP SCH (21:28)
[2017-12-12] MEDS: Acetaminophen 500 MG TAB PO PRN ×4 (00:17→21:58)
[2017-12-12] MEDS: Amlodipine 10 MG TAB PO SCH (08:38)
[2017-12-12] MEDS: Calcium Acetate 667 MG CAP PO SCH ×3 (08:38→18:16)
[2017-12-12] MEDS: Lubiprostone 8 MCG CAP PO SCH ×2 (08:39→20:10)
[2017-12-12] MEDS: Famotidine 20 MG TAB PO SCH (08:39)
[2017-12-12] MEDS: Clopidogrel Bisulfate 75 MG TAB PO SCH (08:39)
[2017-12-12] MEDS: hydrALAZINE 25 MG TAB PO SCH ×3 (08:39→20:10)
[2017-12-12] MEDS: Carvedilol 25 MG TAB PO SCH ×2 (08:40→18:16)
[2017-12-12] MEDS: Timolol 0.5% Ophth Soln 5 ml Bottle EA EYE SCH ×2 (08:41→20:12)
[2017-12-12] MEDS ORDERED: FLU VACC QS2017-18 36 mo. & older 0.5 ML SYRINGE IM ONE (09:00)
[2017-12-12] MEDS ORDERED: ISOVUE-370 76%-LOCM 1 ML ONE (13:23)
--- NOTE | 2017-12-12 14:36 | PDOC.PN ---
- Subjective Encounter Start Date: 12/12/17 Encounter Start Time: 09:15 Subjective: mild abd pain this am, no bm yet -: no nausea, feels a bit better than yesterday -: is more awake today - Objective Resuscitation Status: Resuscitation Status FULL:Full Resuscitation MAR Reviewed: Yes Vital Signs & Weight: Vital Signs (12 hours) Temp Pulse Pulse Resp BP BP BP 12/12/17 12:15 12/12/17 11:00 98.8 F 81 16 142/69 H 12/12/17 10:30 100.6 F H 84 18 152/67 H 12/12/17 10:07 85 159/67 H 12/12/17 08:41 83 150/60 H 12/12/17 08:39 93 150/60 H 12/12/17 08:38 84 150/60 H 12/12/17 07:53 100.3 F H 81 18 12/12/17 07:22 100.3 F H 81 18 150/64 H 12/12/17 04:00 100 F H 78 18 142/63 H 12/12/17 02:40 100.2 F H Pulse Ox 12/12/17 12:15 92 L 12/12/17 11:00 95 12/12/17 10:30 95 12/12/17 10:07 12/12/17 08:41 12/12/17 08:39 12/12/17 08:38 12/12/17 07:53 98 12/12/17 07:22 99 12/12/17 04:00 93 L 12/12/17 02:40 Weight Weight 226 lb 7 oz I&O: 12/11/17 12/12/17 12/13/17 06:59 06:59 06:59 Intake Total 460 1600 Output Total 0 4000 Balance 460 -2400 Result Diagrams: 12/11/17 02:13 12/11/17 02:13 Additional Labs: Accuchecks 12/12/17 12/12/17 12/11/17 12:16 06:18 21:24 POC Glucose 234 H 113 H 181 H 12/11/17 16:43 POC Glucose 112 H Phys Exam - Physical Examination HEENT: PERRLA, moist MMs Neck: no JVD, supple Respiratory: no wheezing, no rales Cardiovascular: RRR, no significant murmur Gastrointestinal: soft, positive bowel sounds distention+ Musculoskeletal: pulses present, edema present Neurological: non-focal, moves all 4 limbs Psychiatric: A&O x 3 Dx/Plan (1) Sepsis Code(s): A41.9 - SEPSIS, UNSPECIFIED ORGANISM Status: Acute Qualifiers: Sepsis type: sepsis due to unspecified organism Qualified Code(s): A41.9 - Sepsis, unspecified organism (2) Volume overload Code(s): E87.70 - FLUID OVERLOAD, UNSPECIFIED Status: Acute (3) ESRD (end stage renal disease) on dialysis Code(s): N18.6 - END STAGE RENAL DISEASE; Z99.2 - DEPENDENCE ON RENAL DIALYSIS Status: Chronic (4) Obesity (BMI 30-39.9) Code(s): E66.9 - OBESITY, UNSPECIFIED Status: Chronic (5) DM type 2 (diabetes mellitus, type 2) Status: Chronic Qualifiers: Diabetes mellitus complication status: with hypoglycemia Diabetes mellitus ferry terminal supervisor insulin use: with ferry terminal supervisor use (6) Chronic anemia Code(s): D64.9 - ANEMIA, UNSPECIFIED Status: Chronic (7) Acute metabolic encephalopathy Code(s): G93.41 - METABOLIC ENCEPHALOPATHY Status: Resolved - Plan CT abd, usg venous doppler -: is on vanc and cefepime -: tmax of 100 last 24hrs -: february tx to med floor -: had HD yesterday with removal of 4 liters * . Review of Systems - Medications/Allergies Allergies/Adverse Reactions: Allergies Allergy/AdvReac Type Severity Reaction Status Date / Time banana [Banana] Allergy Verified 04/19/14 19:13 Penicillins Allergy Verified 09/06/13 14:16 Medications: Current Medications Acetaminophen (Tylenol) 1,000 mg PO Q6H PRN PRN Reason: Headache/Fever or Mild Pain Last Admin: 12/12/17 08:40 Dose: 1,000 mg Amlodipine Besylate (Norvasc) 10 mg PO DAILY [facility] Last Admin: 12/12/17 08:38 Dose: 10 mg Aspirin (Aspirin Chewable) 81 mg PO DAILY [facility] Last Admin: 12/12/17 08:40 Dose: 81 mg Calcium Acetate (Phoslo) 667 mg PO TID [facility] Last Admin: 12/12/17 08:38 Dose: 667 mg Carvedilol (Coreg) 25 mg PO BID-[facility] Last Admin: 12/12/17 08:40 Dose: 25 mg Clonidine (Catapres) 0.1 mg PO Q4H PRN PRN Reason: Systolic BP > 180 Clopidogrel Bisulfate (Plavix) 75 mg PO DAILY [facility] Last Admin: 12/12/17 08:39 Dose: 75 mg Dextrose/Water (Dextrose 50%) 25 gm SLOW IVP PRN PRN PRN Reason: Hypoglycemia Last Admin: 12/11/17 06:48 Dose: 25 gm Epoetin Branden (Procrit) 7,500 units SC Q7D [facility] Last Admin: 12/11/17 12:13 Dose: 7,500 units Famotidine (Pepcid) 20 mg PO DAILY [facility] Last Admin: 12/12/17 08:39 Dose: 20 mg Glucagon (Glucagon) 1 mg IM PRN PRN PRN Reason: Hypoglycemia Hydralazine HCl (Apresoline) 10 mg SLOW IVP Q4H PRN PRN Reason: Systolic BP > 180 Hydralazine HCl (Apresoline) 25 mg PO TID [facility] Last Admin: 12/12/17 08:39 Dose: 25 mg Dextrose/Water (D5w) 1,000 mls @ 0 mls/hr IV .Q0M PRN; As Directed PRN Reason: Hypoglycemia Cefepime HCl 1 gm/ Syringe 10 mls @ 120 mls/hr SLOW IVP Q24HR@2100 [facility] Last Admin: 12/11/17 21:28 Dose: 10 mls Vancomycin HCl 1.25 gm/ Sodium (Chloride) 250 mls @ 166.667 mls/hr IVPB WILLCALL PRN PRN Reason: IF VANC LEVEL <= 5.0 Vancomycin HCl 1 gm/ Device 200 mls @ 200 mls/hr IVPB WILLCALL PRN PRN Reason: IF VANC LEVEL >5 AND <=10 Vancomycin HCl 750 mg/ Sodium (Chloride) 250 mls @ 250 mls/hr IVPB WILLCALL PRN PRN Reason: IF VANC LEVEL >10 AND <= 15 Vancomycin HCl 500 mg/ Sodium (Chloride) 100 mls @ 100 mls/hr IVPB WILLCALL PRN PRN Reason: IF VANC LEVEL >15 AND <=20 Insulin Human Lispro (Humalog) 0 units SC .MILD SLIDING SCALE PRN PRN Reason: Mild Correctional Scale Insulin Human Lispro (Humalog) 0 units SC .BEDTIME SLIDING SC PRN PRN Reason: Bedtime Correctional Scale Lubiprostone (Amitiza) 8 mcg PO BID [facility] Last Admin: 12/12/17 08:39 Dose: 8 mcg Metoclopramide HCl (Reglan) 10 mg PO TIDPRN PRN PRN Reason: Nausea Hold Vancomycin For (Level >20) 0 each FS .AT DIALYSIS PRN PRN Reason: HOLD VANC IF LEVEL > 20 Ondansetron HCl (Zofran Odt) 4 mg PO Q6H PRN PRN Reason: Nausea/Vomiting Ondansetron HCl (Zofran) 4 mg IVP Q6H PRN PRN Reason: Nausea/Vomiting Timolol Maleate (Timoptic 0.5% [facility]) 1 drop EA EYE DAILY [facility] Last Admin: 12/12/17 08:41 Dose: 1 drop
--- NOTE | 2017-12-12 15:29 | CT ---
CT ABDOMEN AND PELVIS WITH CONTRAST: Date: 12/12/17 HISTORY: Abdominal pain and sepsis. COMPARISON: CT abdomen and pelvis without contrast dated 09/12/10. FINDINGS: There is a peripheral opacity in the right lung base abutting the pleura and appears somewhat solid. This measures 1.5 x 0.9 cm. There is also a nodular mass in the left lower lobe measuring 7.0 mm. Heart size is mildly enlarged. No dilated loops of large or small bowel. There are surgical clips in the expected location of the appendix. Punctate nonobstructing calculi bilaterally. At the inferior pole left kidney is a mass, which is inc reased or new from the comparison examination measuring up to 1.5 cm, although there is a low central attenuation. There are two too small to characterize hypodensities adjacent to the inferior pole of the left kidney. No hydronephrosis. No free intraperitoneal gas or fluid. Mild diverticular disease of sigmoid colon without active inflammation. Small, fat-containing indirec t inguinal hernia on the right. Aortoiliac contour is nonaneurysmal. Mild atherosclerotic plaque celiac trunk and superior mesenteric arteries. Pancreas is unremarkable, as well as is the spleen. Prior cholecystectomy. Focal fatty infiltration o f hepatic segment 4B near the falciform ligament. Moderate degenerative disease both hip joints with subchondral sclerosis and osteophyte formation. Ex tensive atherosclerotic plaque of the femoral vessels. IMPRESSION: 1. Pulmonary nodules in both lower lobes some with pleural abutment. One with pleural abutment in th e right lower lobe measures 1.5 cm. Differential includes metastatic disease versus primary malignanc y versus resolving multifocal pneumonia. There are smaller nodules in the left lower lobe. A follow-u p CT of chest is recommended in 2-3 weeks to evaluate for change. Rapid decrease in size would sugges t improving pneumonia. If there is no change, a PET CT or biopsy would be recommended. 2. Size increase/new left inferior pole hypodensity measuring up to 1.5 cm. A follow-up MRI renal pr otocol with and without contrast with subtraction imaging is recommended in 3 months. 3. Marked prostatomegaly with very thickened small vesicles. Recommend correlation with PSA. 4. No acute inflammatory process in the abdomen or pelvis. 5. Small, fat-containing right-sided indirect inguinal hernia. POS: [facility]
[2017-12-12 16:09] VITALS: BMI 38.4
--- NOTE | 2017-12-12 17:13 | PRG ---
DATE OF SERVICE: 12/12/2017 SUBJECTIVE: The patient still with pain in the facial area, the nose bridge and forehead and periorb ital regions and the upper maxilla. No chest pain, no dyspnea or cough, no abdominal pain. OBJECTIVE: VITAL SIGNS: T-max 100.6, currently at 98.8, blood pressure 140/60, pulse 81. coating mixer tender nasal br idge, upper maxilla, forehead, periorbital region. No obvious inflammatory changes noted. LUNGS: With symmetric air entry with faint basilar crackles. CARDIOVASCULAR: S1, S2, regular rate without obvious murmurs. ABDOMEN: Soft. Less tenderness than yesterday. LABORATORY DATA: White cell count 11.5, hemoglobin 10, platelets 108, 000. Microbiology with thus f ar negative blood cultures and urine culture. Patient had a CT of abdomen, which showed pulmonary no dules lower lobes pleural abutment. ASSESSMENT AND DISCUSSION: End-stage renal disease secondary to type 2 diabetes on dialysis through AV fistula, coronary artery disease, fever, and recurrent falls. The pulmonary nodules could represe nt hematogenous areas of pneumonitis and will need to rule out endocarditis. Blood cultures thus far negative. Malignancy would be the other concern.
--- NOTE | 2017-12-12 17:37 | ULT ---
BILATERAL LOWER EXTREMITY VENOUS DUPLEX SONOGRAM 12/12/17 HISTORY: Bilateral leg pain and edema. FINDINGS: Each common femoral vein and greater saphenous junction were evaluated along with each femoral, deep femoral, popliteal, and posterior tibial vein. There is good color and spectral doppler flow, kai juan f, and augmentation. IMPRESSION: No sonographic evidence of DVT within either lower extremity. POS: [facility]
--- NOTE | 2017-12-12 18:07 | PRG ---
DATE OF SERVICE: 12/12/2017 SERVICE: Pulmonary Medicine. INTERVAL HISTORY: The patient is doing fine from cardiovascular and respiratory standpoint. He look s a touch better today though he does not suggest that he is feeling any improvement. He denies any current fevers, chills, nausea, vomiting or diarrhea. Otherwise, there has been no interval change t o his condition. There were no overnight events reported. OBJECTIVE: VITAL SIGNS: Currently, T-max overnight of 100.6, pulse 81, blood pressure 142/69, respirations 16, saturation 92% on room air. GENERAL: The patient is awake, alert, no apparent distress. LUNGS: Decent air entry. There is a slightly prolonged expiratory phase with a little dependent crane hooker ckles. Expiratory wheezing is better. HEART: Normal rate, regular. ABDOMEN: Soft, nontender, nondistended. Bowel sounds are positive. MUSCULOSKELETAL: No cyanosis or clubbing. No pitting in the bilateral lower extremities. NEUROLOGIC: Grossly nonfocal though he demonstrates asterixis. GENITOURINARY: No Rice. LABORATORY DATA: WBC 11.5, hemoglobin 10.1, platelets 108,000. Blood sugar is 234. Urine culture i s negative to date. Blood cultures x2 are unremarkable. Influenza A and B is also unremarkable. IMAGING: CT of the abdomen and pelvis demonstrates pulmonary nodules in both lower lobes with pleura l abutment. Largest measures 1.5 cm. Differential is wide and includes infectious versus neoplastic processes. Increase in size, left inferior pole hypodensity. Prostatomegaly is present with fat-co ntaining inguinal hernia. ASSESSMENT: 1. Severe sepsis, improving. 2. Metabolic encephalopathy, stable. 3. End-stage renal disease. 4. Community-acquired pneumonia, possible. 5. Pulmonary nodules versus infiltrate PLAN: We will continue her empiric antibiotics. Supportive measures will also be continued. His ab dominal tenderness is actually little bit improved. There were some discovery found on the CT of the abdomen and pelvis that will require further investigation in the future. PSA will be added to [facility] laboratories.
[2017-12-12] MEDS: Cefepime 1 GM in Syringe 10 ML SLOW IVP SCH (20:10)
[2017-12-13 05:49] LABS: #Eosinphils 0.3 thou/uL (0.0-0.7); #Lymphocytes 0.8 thou/uL (1.20-3.40); #Monocytes 0.6 thou/uL (0.11-0.59); %Basophils 0.1 % (0.0-1.0); %Eosinophils 2.6 % (0.0-10.0); %Lymphocytes 7.3 % (21.0-51.0); %Monocytes 5.3 % (0.0-10.0); %Neutrophils 84.7 % (42.0-75.0); Hemoglobin 9.5 g/dL (14.0-18.0); Mean Corpuscular HGB CONC 32.6 g/dL (32.0-36.0); Mean Platelet Volume 9.8 fL (7.4-10.4); Platelet Count 133 thou/uL (130-400); RBC Distribution Width 14.4 % (11.5-14.5); Red Blood Cell (RBC) Count 3.18 mill/uL (4.70-6.10); White Blood Cell (WBC) Count 10.7 thou/uL (4.8-10.8)
[2017-12-13 05:58] LABS: Anion Gap 21 mmol/L (10-20); BUN (Urea Nitrogen) 55 mg/dL (8.4-25.7); Calc. Creatinine Clearance 9 mL/min (70-130); Calcium 9.4 mg/dL (7.8-10.44); Carbon Dioxide 24 mmol/L (23-31); Chloride 89 mmol/L (98-107); Estimated GFR-MDRD 4; Glucose 81 mg/dL (80-115); Potassium 5.2 mmol/L (3.5-5.1); Sodium 129 mmol/L (136-145)
[2017-12-13] MEDS: Carvedilol 25 MG TAB PO SCH ×2 (08:00→17:42)
[2017-12-13] MEDS: Calcium Acetate 667 MG CAP PO SCH ×3 (08:00→17:42)
[2017-12-13] MEDS ORDERED: diphenhydrAMINE 50 MG/ML VIAL IVP SCH (08:30)
[2017-12-13 08:32] LABS: Vancomycin, Random 14.3 ug/mL (See Comment)
[2017-12-13] MEDS: Lubiprostone 8 MCG CAP PO SCH ×2 (09:00→19:53)
[2017-12-13] MEDS: hydrALAZINE 25 MG TAB PO SCH ×3 (09:00→19:52)
--- NOTE | 2017-12-13 10:22 | PRG ---
DATE OF SERVICE: 12/13/2017 SUBJECTIVE: Mr. Reynolds is a 62-year-old male with ESRD and being followed by the [facility] for his maintenance hemodialysis. He is undergoing hemodialysis at the present time. I am at the bedside supervising his dialysis. Of interest, this patient was very agitated earlier. He was g iven Benadryl and agitation improved. In addition, the patient was admitted for fever. The working diagnosis is possible pneumonia. The CT scan of the chest showed multifocal nodules. This is either pneumonia or if it is not pneumonia, this could be a malignancy. For the moment, he is on empiric I V antibiotics. ID is following as well as Pulmonary. OBJECTIVE: VITAL SIGNS: Blood pressure 153/76, heart rate 69, respiratory rate 18, temperature 99.6, pulse ox 9 3%. GENERAL: Awake, alert, comfortable, not in distress. SKIN: Adequate turgor. HEENT: Pinkish conjunctivae, anicteric sclerae. NECK: No neck mass, no carotid bruits, no JVD. CHEST: No deformities. LUNGS: Decreased breath sounds. HEART: Normal sinus rhythm. No murmur, no gallops, no rubs. ABDOMEN: Globular, soft, nontender, no masses. EXTREMITIES: Trace edema. MEDICATIONS: Of 12/13/2017, reviewed. LABORATORY: Of 12/13/2017, white count 10.7, hemoglobin 9.5. Sodium 129, potassium 5.2, chloride 89 , carbon dioxide 24, BUN 55, creatinine 12.05, glucose 81, calcium 9.4, PSA 2.4. ASSESSMENT AND PLAN: 1. End-stage renal disease, stable. Tolerating current hemodialysis regimen, maxing out fluid remov al as tolerated by the patient, using no heparin. 2. Fever - presumptive pneumonia. Currently on IV antibiotics - the patient currently on IV vancomy kaity. Infectious Disease is following. 3. Anemia, continuing weekly Epogen.
[2017-12-13] MEDS: Vancomycin HCl 750 MG in Sodium Chloride 0.9% 250 ML 250 ML IVPB PRN (10:53)
--- NOTE | 2017-12-13 14:10 | PDOC.PN ---
- Subjective Encounter Start Date: 12/13/17 Encounter Start Time: 11:30 Subjective: is getting Hd, no family at bedside in his room -: no sob, feels better - Objective Resuscitation Status: Resuscitation Status FULL:Full Resuscitation MAR Reviewed: Yes Vital Signs & Weight: Vital Signs (12 hours) Temp Pulse Resp BP Pulse Ox 12/13/17 09:00 69 12/13/17 04:00 99.6 F 69 18 153/76 H 93 L Weight Weight 241 lb 15.247 oz I&O: 12/12/17 12/13/17 12/14/17 06:59 06:59 06:59 Intake Total 1600 1300 Output Total 4000 0 Balance -2400 1300 Result Diagrams: 12/13/17 05:08 12/13/17 05:08 Additional Labs: Accuchecks 12/13/17 12/12/17 12/12/17 05:26 22:13 20:43 POC Glucose 94 175 H 223 H 12/12/17 16:38 POC Glucose 292 H Phys Exam - Physical Examination HEENT: PERRLA, moist MMs Neck: no JVD, supple Respiratory: no wheezing, no rales Cardiovascular: RRR, no significant murmur Gastrointestinal: soft, non-tender, positive bowel sounds Musculoskeletal: pulses present, edema present Neurological: non-focal, moves all 4 limbs Psychiatric: A&O x 3 Dx/Plan (1) Sepsis Code(s): A41.9 - SEPSIS, UNSPECIFIED ORGANISM Status: Acute Qualifiers: Sepsis type: sepsis due to unspecified organism Qualified Code(s): A41.9 - Sepsis, unspecified organism (2) Volume overload Code(s): E87.70 - FLUID OVERLOAD, UNSPECIFIED Status: Acute (3) ESRD (end stage renal disease) on dialysis Code(s): N18.6 - END STAGE RENAL DISEASE; Z99.2 - DEPENDENCE ON RENAL DIALYSIS Status: Chronic (4) Obesity (BMI 30-39.9) Code(s): E66.9 - OBESITY, UNSPECIFIED Status: Chronic (5) DM type 2 (diabetes mellitus, type 2) Status: Chronic Qualifiers: Diabetes mellitus complication status: with hypoglycemia Diabetes mellitus complication detail: without coma Diabetes mellitus joint terminal attack controller insulin use: with snf use Qualified Code(s): E11.649 - Type 2 diabetes mellitus with hypoglycemia without coma; Z79.4 - intermediate manager (current) use of insulin; Z79.4 - half-way (current) use of insulin; Z79.4 - intermediate manager (current) use of insulin; Z79.4 - half-way (current) use of insulin (6) Chronic anemia Code(s): D64.9 - ANEMIA, UNSPECIFIED Status: Chronic (7) Acute metabolic encephalopathy Code(s): G93.41 - METABOLIC ENCEPHALOPATHY Status: Resolved (8) PNA (pneumonia) Code(s): J18.9 - PNEUMONIA, UNSPECIFIED ORGANISM Status: Acute Qualifiers: Laterality: bilateral Comment: cap - Plan is on vanc and cefepime -: t.max is 99, has come down now -: on asp, plavix, coreg and hydralazine -: dm is labile, will optimize meds -: echo to r/o veg * . Review of Systems - Medications/Allergies Allergies/Adverse Reactions: Allergies Allergy/AdvReac Type Severity Reaction Status Date / Time banana [Banana] Allergy Verified 04/19/14 19:13 Penicillins Allergy Verified 09/06/13 14:16 Medications: Current Medications Acetaminophen (Tylenol) 1,000 mg PO Q6H PRN PRN Reason: Headache/Fever or Mild Pain Last Admin: 12/12/17 21:58 Dose: 1,000 mg Amlodipine Besylate (Norvasc) 10 mg PO DAILY [facility] Last Admin: 12/12/17 08:38 Dose: 10 mg Aspirin (Aspirin Chewable) 81 mg PO DAILY [facility] Last Admin: 12/12/17 08:40 Dose: 81 mg Calcium Acetate (Phoslo) 667 mg PO TID-[facility] Last Admin: 12/13/17 08:00 Dose: Not Given Carvedilol (Coreg) 25 mg PO BID-[facility] Last Admin: 12/13/17 08:00 Dose: Not Given Clonidine (Catapres) 0.1 mg PO Q4H PRN PRN Reason: Systolic BP > 180 Clopidogrel Bisulfate (Plavix) 75 mg PO DAILY [facility] Last Admin: 12/12/17 08:39 Dose: 75 mg Dextrose/Water (Dextrose 50%) 25 gm SLOW IVP PRN PRN PRN Reason: Hypoglycemia Last Admin: 12/11/17 06:48 Dose: 25 gm Epoetin Branden (Procrit) 7,500 units SC Q7D [facility] Last Admin: 12/11/17 12:13 Dose: 7,500 units Famotidine (Pepcid) 20 mg PO DAILY [facility] Last Admin: 12/12/17 08:39 Dose: 20 mg Glucagon (Glucagon) 1 mg IM PRN PRN PRN Reason: Hypoglycemia Hydralazine HCl (Apresoline) 10 mg SLOW IVP Q4H PRN PRN Reason: Systolic BP > 180 Hydralazine HCl (Apresoline) 25 mg PO TID [facility] Last Admin: 12/13/17 09:00 Dose: Not Given Dextrose/Water (D5w) 1,000 mls @ 0 mls/hr IV .Q0M PRN; As Directed PRN Reason: Hypoglycemia Cefepime HCl 1 gm/ Syringe 10 mls @ 120 mls/hr SLOW IVP Q24HR@2100 [facility] Last Admin: 12/12/17 20:10 Dose: 10 mls Vancomycin HCl 1.25 gm/ Sodium (Chloride) 250 mls @ 166.667 mls/hr IVPB WILLCALL PRN PRN Reason: IF VANC LEVEL <= 5.0 Vancomycin HCl 1 gm/ Device 200 mls @ 200 mls/hr IVPB WILLCALL PRN PRN Reason: IF VANC LEVEL >5 AND <=10 Vancomycin HCl 750 mg/ Sodium (Chloride) 250 mls @ 250 mls/hr IVPB WILLCALL PRN PRN Reason: IF VANC LEVEL >10 AND <= 15 Last Admin: 12/13/17 10:53 Dose: 250 mls Vancomycin HCl 500 mg/ Sodium (Chloride) 100 mls @ 100 mls/hr IVPB WILLCALL PRN PRN Reason: IF VANC LEVEL >15 AND <=20 Insulin Human Lispro (Humalog) 0 units SC .MILD SLIDING SCALE PRN PRN Reason: Mild Correctional Scale Insulin Human Lispro (Humalog) 0 units SC .BEDTIME SLIDING SC PRN PRN Reason: Bedtime Correctional Scale Lubiprostone (Amitiza) 8 mcg PO BID [facility] Last Admin: 12/13/17 09:00 Dose: Not Given Metoclopramide HCl (Reglan) 10 mg PO TIDPRN PRN PRN Reason: Nausea Hold Vancomycin For (Level >20) 0 each FS .AT DIALYSIS PRN PRN Reason: HOLD VANC IF LEVEL > 20 Ondansetron HCl (Zofran Odt) 4 mg PO Q6H PRN PRN Reason: Nausea/Vomiting Ondansetron HCl (Zofran) 4 mg IVP Q6H PRN PRN Reason: Nausea/Vomiting Timolol Maleate (Timoptic 0.5% Oph Soln) 1 drop EA EYE BID [facility] Last Admin: 12/12/17 20:12 Dose: 1 drop
[2017-12-13] MEDS: Amlodipine 10 MG TAB PO SCH (14:15)
[2017-12-13] MEDS: Timolol 0.5% Ophth Soln 5 ml Bottle EA EYE SCH ×2 (14:16→19:52)
[2017-12-13] MEDS: Famotidine 20 MG TAB PO SCH (14:16)
[2017-12-13] MEDS: Clopidogrel Bisulfate 75 MG TAB PO SCH (14:16)
[2017-12-13] MEDS: Dextrose 50% Abboject 50 ML SYRINGE SLOW IVP PRN (14:16)
--- NOTE | 2017-12-13 15:35 | PRG ---
DATE OF SERVICE: 12/13/2017 SERVICE: Pulmonary Medicine. INTERVAL HISTORY: The patient remains a little bit sleepy. Outside of this, there has been no inter xochitl change to his condition. He denies any current shortness of breath, fevers or chills. He is cur rently on dialysis and tolerating this thing just fine. His headache and eye discomfort have both re solved. PHYSICAL EXAMINATION: VITAL SIGNS: T-max 100.5, pulse 87, blood pressure 180/71, respirations 18 and saturation 93% on 3 l iters nasal cannula. GENERAL: The patient is somnolent, but wakes up with gentle stimulation. HEENT: Normocephalic and atraumatic. Sclerae are white, conjunctivae pink. Oral and nasal mucosa i s moist without lesions. LUNGS: Decent air entry. There is no prolonged expiratory phase or wheezing. HEART: Normal rate and regular. ABDOMEN: Soft, nontender and nondistended. Bowel sounds are positive. MUSCULOSKELETAL: No cyanosis or clubbing. No pitting in the bilateral lower extremities. NEUROLOGIC: Grossly nonfocal. He continues to demonstrate asterixis. LABORATORY DATA: WBC 10.7, hemoglobin 9.5 and platelets 133,000. Sodium 129, creatinine 12.05, BUN 55, anion gap 21, bicarbonate 24. PSA 2.4. Glucose is 94. Blood cultures x2, urine culture, Influe nza A and B are all unremarkable. ASSESSMENT: 1. Severe sepsis, improving. 2. Metabolic encephalopathy, stable. 3. End-stage renal disease. 4. Community-acquired pneumonia, possible. 5. Pulmonary nodules versus infiltrate, I favor the latter. PLAN: We will continue empiric antibiotics, and other supportive measures. Ultimately, he will need a CT of the chest in the outpatient setting to make certain that these lesions went away. If not, a dditional investigation may be warranted. Pulmonary Critical Care will continue to follow until his mentation clears ever so slightly.
[2017-12-13] MEDS: Acetaminophen 500 MG TAB PO PRN (19:51)
[2017-12-13] MEDS: Cefepime 1 GM in Syringe 10 ML SLOW IVP SCH (20:19)
[2017-12-14] MEDS: Acetaminophen 500 MG TAB PO PRN ×3 (04:40→18:07)
[2017-12-14] MEDS: Dextrose 50% Abboject 50 ML SYRINGE SLOW IVP PRN (04:40)
[2017-12-14 05:44] LABS: #Eosinphils 0.1 thou/uL (0.0-0.7); #Lymphocytes 0.6 thou/uL (1.20-3.40); #Monocytes 0.7 thou/uL (0.11-0.59); #Neutrophils 6.8 thou/uL (1.40-6.50); %Basophils 0.4 % (0.0-1.0); %Eosinophils 1.6 % (0.0-10.0); %Lymphocytes 7.5 % (21.0-51.0); %Neutrophils 82.5 % (42.0-75.0); Hemoglobin 10.3 g/dL (14.0-18.0); Mean Corpuscular HGB CONC 31.9 g/dL (32.0-36.0); Mean Corpuscular Hemoglobin 30.2 pg (27.0-31.0); Mean Corpuscular Volume 94.6 fl (80.0-94.0); Mean Platelet Volume 9.4 fL (7.4-10.4); Platelet Count 154 thou/uL (130-400); RBC Distribution Width 14.5 % (11.5-14.5); Red Blood Cell (RBC) Count 3.39 mill/uL (4.70-6.10); White Blood Cell (WBC) Count 8.3 thou/uL (4.8-10.8)
[2017-12-14 06:16] LABS: Anion Gap 18 mmol/L (10-20); BUN (Urea Nitrogen) 32 mg/dL (8.4-25.7); Calc. Creatinine Clearance 13 mL/min (70-130); Calcium 9.4 mg/dL (7.8-10.44); Carbon Dioxide 28 mmol/L (23-31); Chloride 91 mmol/L (98-107); Estimated GFR-MDRD 6; Glucose 159 mg/dL (80-115); Sodium 133 mmol/L (136-145)
[2017-12-14] MEDS: Carvedilol 25 MG TAB PO SCH ×2 (08:05→16:58)
[2017-12-14] MEDS: hydrALAZINE 25 MG TAB PO SCH ×3 (08:07→21:05)
[2017-12-14] MEDS: Calcium Acetate 667 MG CAP PO SCH ×3 (08:07→16:58)
[2017-12-14] MEDS: Famotidine 20 MG TAB PO SCH (08:08)
[2017-12-14] MEDS: Amlodipine 10 MG TAB PO SCH (08:08)
[2017-12-14] MEDS: Clopidogrel Bisulfate 75 MG TAB PO SCH (08:08)
[2017-12-14] MEDS: Lubiprostone 8 MCG CAP PO SCH ×2 (08:09→21:05)
--- NOTE | 2017-12-14 09:15 | RAD ---
RADIOGRAPH LEFT ANKLE 2 VIEWS: HISTORY: A 62-year-old male status post fall, traumatic ankle pain. FINDINGS: Ankle mortise is grossly symmetrical. No fracture or dislocation identified. IMPRESSION: No fracture identified. POS: [facility]
--- NOTE | 2017-12-14 13:14 | EKG ---
Test Reason : Blood Pressure : / mmHG Vent. Rate : 093 BPM Atrial Rate : 093 BPM P-R Int : 192 ms QRS Dur : 144 ms QT Int : 388 ms P-R-T Axes : 047 -53 082 degrees QTc Int : 482 ms Normal sinus rhythm Right bundle branch block Left anterior fascicular block Bifascicular block T wave abnormality, consider lateral ischemia Abnormal ECG Confirmed by NILSON ORTIZ, OMAR ([id number]), copy editor COURTNEY DIGGS ([id number]) on 12/14/2017 1:14:27 PM Referred By: Confirmed By:OMAR DEVINE MD
[2017-12-14] MEDS: Timolol 0.5% Ophth Soln 5 ml Bottle EA EYE SCH ×2 (14:34→20:52)
--- NOTE | 2017-12-14 15:21 | PDOC.PN ---
- Subjective Encounter Start Date: 12/14/17 Encounter Start Time: 15:20 Subjective: mentation only marginally better.ate only a little - Objective Resuscitation Status: Resuscitation Status FULL:Full Resuscitation MAR Reviewed: Yes Vital Signs & Weight: Vital Signs (12 hours) Temp Pulse Resp BP BP Pulse Ox 12/14/17 14:34 76 174/76 H 12/14/17 08:08 76 174/76 H 12/14/17 08:07 76 174/76 H 12/14/17 08:00 97.8 F 67 20 114/61 97 12/14/17 04:00 100.4 F H 76 22 H 158/75 H 92 L Weight Weight 230 lb I&O: 12/13/17 12/14/17 12/15/17 06:59 06:59 06:59 Intake Total 1300 1000 Output Total 0 Balance 1300 1000 Result Diagrams: 12/14/17 05:21 12/14/17 05:21 Additional Labs: Accuchecks 12/14/17 12/13/17 12/13/17 04:35 16:51 15:33 POC Glucose 54 L* 111 H 131 H Microbiology 12/10/17 22:25 Urine bartlett catheter Urine Culture - Final NO GROWTH AT 36 HOURS 12/10/17 22:24 Nasopharynx - Pending Influenza Types A,B Direct EIA - Final 12/10/17 22:29 Venous blood - Left Arm Blood Culture - Preliminary Gram Positive Edgar 12/10/17 22:21 Venous blood - Left Arm Blood Culture - Preliminary NO GROWTH AT 48 HOURS Phys Exam - Physical Examination Constitutional: NAD follows simple commands.. HEENT: PERRLA, moist MMs, sclera anicteric, oral pharynx no lesions Neck: no nodes, no JVD, supple, full ROM Respiratory: no wheezing, no rales, no rhonchi, clear to auscultation bilateral Cardiovascular: RRR, no significant murmur Gastrointestinal: soft, non-tender, no distention, positive bowel sounds Musculoskeletal: no edema, pulses present Neurological: non-focal, normal sensation, moves all 4 limbs Psychiatric: normal affect, A&O x 3 Skin: no rash Dx/Plan (1) PNA (pneumonia) Code(s): J18.9 - PNEUMONIA, UNSPECIFIED ORGANISM Status: Acute Qualifiers: Laterality: bilateral Comment: cap (2) Acute metabolic encephalopathy Code(s): G93.41 - METABOLIC ENCEPHALOPATHY Status: Resolved (3) Sepsis Code(s): A41.9 - SEPSIS, UNSPECIFIED ORGANISM Status: Acute Qualifiers: Sepsis type: sepsis due to unspecified organism Qualified Code(s): A41.9 - Sepsis, unspecified organism (4) Chronic anemia Code(s): D64.9 - ANEMIA, UNSPECIFIED Status: Chronic (5) DM type 2 (diabetes mellitus, type 2) Status: Chronic Qualifiers: Diabetes mellitus complication status: with hypoglycemia Diabetes mellitus complication detail: without coma Diabetes mellitus senior care insulin use: with senior care use Qualified Code(s): E11.649 - Type 2 diabetes mellitus with hypoglycemia without coma; Z79.4 - residential (current) use of insulin; Z79.4 - residential (current) use of insulin; Z79.4 - intermodal truck driver (current) use of insulin; Z79.4 - intermodal truck driver (current) use of insulin (6) ESRD (end stage renal disease) on dialysis Code(s): N18.6 - END STAGE RENAL DISEASE; Z99.2 - DEPENDENCE ON RENAL DIALYSIS Status: Chronic (7) Obesity (BMI 30-39.9) Code(s): E66.9 - OBESITY, UNSPECIFIED Status: Chronic - Plan continue antibiotics, PT/OT, respiratory therapy, incentive spirometry, DVT proph w/SCDs AMS slightly better.cont empiric ABx for PNA.ID & PCCM following -: family made aware of pulm nodules & need for repeat CT in few weeeks -: cont HD per nephrology.hemodynamically stable. -: Bp on higher side.cont home meds & PRN meds & monitor -: am labs * . Review of Systems - Review of Systems Other: unable to obtain due to encepahlopathy - Medications/Allergies Allergies/Adverse Reactions: Allergies Allergy/AdvReac Type Severity Reaction Status Date / Time banana [Banana] Allergy Verified 04/19/14 19:13 Penicillins Allergy Verified 09/06/13 14:16 Medications: Current Medications Acetaminophen (Tylenol) 1,000 mg PO Q6H PRN PRN Reason: Headache/Fever or Mild Pain Last Admin: 12/14/17 12:43 Dose: 1,000 mg Amlodipine Besylate (Norvasc) 10 mg PO DAILY [facility] Last Admin: 12/14/17 08:08 Dose: 10 mg Aspirin (Aspirin Chewable) 81 mg PO DAILY [facility] Last Admin: 12/14/17 08:07 Dose: 81 mg Calcium Acetate (Phoslo) 667 mg PO TID-[facility] Last Admin: 12/14/17 12:23 Dose: 667 mg Carvedilol (Coreg) 25 mg PO BID-[facility] Last Admin: 12/14/17 08:05 Dose: 25 mg Clonidine (Catapres) 0.1 mg PO Q4H PRN PRN Reason: Systolic BP > 180 Clopidogrel Bisulfate (Plavix) 75 mg PO DAILY [facility] Last Admin: 12/14/17 08:08 Dose: 75 mg Dextrose/Water (Dextrose 50%) 25 gm SLOW IVP PRN PRN PRN Reason: Hypoglycemia Last Admin: 12/14/17 04:40 Dose: 25 gm Epoetin Branden (Procrit) 7,500 units SC Q7D [facility] Last Admin: 12/11/17 12:13 Dose: 7,500 units Famotidine (Pepcid) 20 mg PO DAILY [facility] Last Admin: 12/14/17 08:08 Dose: 20 mg Glucagon (Glucagon) 1 mg IM PRN PRN PRN Reason: Hypoglycemia Hydralazine HCl (Apresoline) 10 mg SLOW IVP Q4H PRN PRN Reason: Systolic BP > 180 Last Admin: 12/13/17 15:22 Dose: 10 mg Hydralazine HCl (Apresoline) 25 mg PO TID [facility] Last Admin: 12/14/17 08:07 Dose: 25 mg Dextrose/Water (D5w) 1,000 mls @ 0 mls/hr IV .Q0M PRN; As Directed PRN Reason: Hypoglycemia Cefepime HCl 1 gm/ Syringe 10 mls @ 120 mls/hr SLOW IVP Q24HR@2100 [facility] Last Admin: 12/13/17 20:19 Dose: 10 mls Vancomycin HCl 1.25 gm/ Sodium (Chloride) 250 mls @ 166.667 mls/hr IVPB WILLCALL PRN PRN Reason: IF VANC LEVEL <= 5.0 Vancomycin HCl 1 gm/ Device 200 mls @ 200 mls/hr IVPB WILLCALL PRN PRN Reason: IF VANC LEVEL >5 AND <=10 Vancomycin HCl 750 mg/ Sodium (Chloride) 250 mls @ 250 mls/hr IVPB WILLCALL PRN PRN Reason: IF VANC LEVEL >10 AND <= 15 Last Admin: 12/13/17 10:53 Dose: 250 mls Vancomycin HCl 500 mg/ Sodium (Chloride) 100 mls @ 100 mls/hr IVPB WILLCALL PRN PRN Reason: IF VANC LEVEL >15 AND <=20 Insulin Human Lispro (Humalog) 0 units SC .MILD SLIDING SCALE PRN PRN Reason: Mild Correctional Scale Insulin Human Lispro (Humalog) 0 units SC .BEDTIME SLIDING SC PRN PRN Reason: Bedtime Correctional Scale Lubiprostone (Amitiza) 8 mcg PO BID [facility] Last Admin: 12/14/17 08:09 Dose: Not Given Metoclopramide HCl (Reglan) 10 mg PO TIDPRN PRN PRN Reason: Nausea Hold Vancomycin For (Level >20) 0 each FS .AT DIALYSIS PRN PRN Reason: HOLD VANC IF LEVEL > 20 Ondansetron HCl (Zofran Odt) 4 mg PO Q6H PRN PRN Reason: Nausea/Vomiting Ondansetron HCl (Zofran) 4 mg IVP Q6H PRN PRN Reason: Nausea/Vomiting Timolol Maleate (Timoptic 0.5% Oph Soln) 1 drop EA EYE BID [facility] Last Admin: 12/14/17 14:34 Dose: Not Given
[2017-12-14] MEDS: Cefepime 1 GM in Syringe 10 ML SLOW IVP SCH (21:05)
--- NOTE | 2017-12-14 21:49 | PRG ---
DATE OF SERVICE: 12/14/2017 SERVICE: Pulmonary Medicine. INTERVAL HISTORY: The patient is doing really well from a cardiovascular and respiratory standpoint. He is on room air. He denies any current fevers, chills, nausea, or vomiting. Otherwise, has retu rned to his usual state of health. His asterixis is much improved. His tells me that his menta tion is nearly back to baseline. He is little bit confused this morning, but this afternoon, he did much better. Otherwise, there has been no interval change to his condition and he remains hemodynami lucy stable. PHYSICAL EXAMINATION: VITAL SIGNS: Afebrile, pulse rate 70, blood pressure 128/74, respirations 18, saturation 93% on room air. GENERAL: The patient is awake, alert, in no apparent distress. LUNGS: Excellent air entry. There is no prolonged expiratory phase, wheezing, rhonchi, or crackles today. HEART: Normal rate, regular. ABDOMEN: Soft, nontender, nondistended. Bowel sounds are positive. MUSCULOSKELETAL: No cyanosis or clubbing. No pitting in the bilateral lower extremities. NEUROLOGIC: Grossly nonfocal. LABORATORY DATA: WBC 8.3, hemoglobin 10.3 and stable, platelets 154,000 and improving. Creatinine 8 .92 which has significantly improved. BUN 32. Chloride 91, sodium 133. Basic metabolic profile is otherwise unremarkable. Blood sugar ranges from 54 up to 131. Microbiology is growing gram positive rods in the blood cultures. This was only one out of two. The urine culture and influenza are unre markable. IMAGING: Left ankle x-ray was without acute fracture. ASSESSMENT: 1. Severe sepsis, improving. 2. Metabolic encephalopathy, resolving. 3. End-stage renal disease. 4. Community-acquired pneumonia, possible. 5. Pulmonary nodules versus infiltrate, I favor the latter. DISCUSSION AND PLAN: We will continue the empiric antibiotics. Anything directed the lungs can be d iscontinued after total duration of 7 days. He will need a repeat CT of the chest in the outpatient setting in roughly 6 weeks to make certain that the pleural based lesion resolved. If they do not, a dditional investigation may be warranted with pulmonary critical care. I have him follow up in the o utpatient setting with a CT of the chest to make certain this happens in roughly 6 weeks.
[2017-12-15 04:51] LABS: #Eosinphils 0.2 thou/uL (0.0-0.7); #Lymphocytes 0.7 thou/uL (1.20-3.40); #Monocytes 0.6 thou/uL (0.11-0.59); #Neutrophils 6.1 thou/uL (1.40-6.50); %Basophils 0.2 % (0.0-1.0); %Eosinophils 2.4 % (0.0-10.0); %Lymphocytes 8.8 % (21.0-51.0); %Monocytes 7.3 % (0.0-10.0); %Neutrophils 81.3 % (42.0-75.0); Mean Corpuscular HGB CONC 32.5 g/dL (32.0-36.0); Mean Corpuscular Hemoglobin 30.7 pg (27.0-31.0); Mean Corpuscular Volume 94.3 fl (80.0-94.0); Mean Platelet Volume 9.4 fL (7.4-10.4); Platelet Count 149 thou/uL (130-400); RBC Distribution Width 14.6 % (11.5-14.5); Red Blood Cell (RBC) Count 3.25 mill/uL (4.70-6.10); White Blood Cell (WBC) Count 7.5 thou/uL (4.8-10.8)
[2017-12-15 05:13] LABS: Anion Gap 22 mmol/L (10-20); BUN (Urea Nitrogen) 57 mg/dL (8.4-25.7); Calc. Creatinine Clearance 10 mL/min (70-130); Calcium 8.8 mg/dL (7.8-10.44); Carbon Dioxide 23 mmol/L (23-31); Chloride 86 mmol/L (98-107); Estimated GFR-MDRD 5; Glucose 373 mg/dL (80-115); Potassium 5.8 mmol/L (3.5-5.1); Sodium 125 mmol/L (136-145)
[2017-12-15] MEDS: Famotidine 20 MG TAB PO SCH (08:21)
[2017-12-15] MEDS: Clopidogrel Bisulfate 75 MG TAB PO SCH (08:21)
[2017-12-15] MEDS: Amlodipine 10 MG TAB PO SCH (08:21)
[2017-12-15] MEDS: Lubiprostone 8 MCG CAP PO SCH ×2 (08:22→20:56)
[2017-12-15] MEDS: Calcium Acetate 667 MG CAP PO SCH ×3 (08:22→17:03)
[2017-12-15] MEDS: hydrALAZINE 25 MG TAB PO SCH ×3 (08:22→20:54)
[2017-12-15] MEDS: Timolol 0.5% Ophth Soln 5 ml Bottle EA EYE SCH ×2 (08:23→20:56)
[2017-12-15] MEDS: Carvedilol 25 MG TAB PO SCH ×2 (08:23→16:59)
--- NOTE | 2017-12-15 10:16 | PRG ---
DATE OF SERVICE: 12/15/2017 SERVICE: Renal Medicine. SUBJECTIVE: Mr. Reynolds is a 62-year-old male with ESRD. We are following him up for his maintenance hemodialysis. He was also admitted for pneumonia. He also had an acute mental status ch lui. He is mentating much better today. No new complaints. No chest pain or shortness of breath. OBJECTIVE: VITAL SIGNS: Blood pressure 175/72, heart rate 75, respiratory rate 20, temperature 97.8, pulse ox 9 3%. GENERAL EXAM: Awake, alert, comfortable, not in distress. SKIN: Adequate turgor. HEENT: He has pinkish conjunctivae. Anicteric sclerae. NECK: No neck mass, no carotid bruits, no JVD. CHEST: No deformities. LUNGS: Decreased breath sounds. HEART: Normal sinus rhythm. No murmur, no gallops, no rubs. ABDOMEN: Globular, soft, nontender, no masses. EXTREMITIES: No edema, no deformities. Medications of 12/15/2017 reviewed. LABORATORY DATA: Laboratories of 12/15/2017, white count 7.5, hemoglobin 10. Sodium 125, potassium 5.8, chloride 86, carbon dioxide 23, BUN 57, creatinine 11.4, glucose 373, calcium 8.8. ASSESSMENT AND PLAN: 1. Hyponatremia/mild hyperkalemia - this could be related to the elevated blood sugar. I think givi ng insulin will help improve the metabolic abnormality. There is no indication for any dialytic inte rvention. 2. End-stage renal disease, stable. Continue current Saturday, Saturday, Saturday dialysis. Toleratin g said treatment. 3. Pneumonia - on IV vancomycin. 4. Decreased mentation - much improved. He most likely had a metabolic encephalopathy, which now re solved.
[2017-12-15] MEDS: Metoclopramide HCl 10 MG TAB PO PRN (11:05)
[2017-12-15] MEDS: HumaLOG 300 UNITS/3 ML VIAL SC PRN ×3 (11:45→21:02)
--- NOTE | 2017-12-15 13:52 | RAD ---
KUB: INDICATION: Abdominal pain, distention, and constipation. COMPARISON: Prior CT of the abdomen and pelvis dated 12/12/17 from [facility]. FINDINGS: The previously administered enteric contrast enteric contrast is seen at the level of the colon and r ectum. There are scattered diverticula. There is an anastomotic suture line within the left lower q uadrant of the abdomen. The bowel gas pattern is unobstructing. There are cholecystectomy clips wit hin the right upper quadrant of the abdomen. No acute osseous abnormality is evident. IMPRESSION: No acute abnormality. POS: [facility]
--- NOTE | 2017-12-15 13:53 | PDOC.PN ---
- Subjective Encounter Start Date: 12/15/17 Encounter Start Time: 13:51 Subjective: feels better today.has some constipation & abdominal distension per nursing -: more awake and alert today.eating much better - Objective Resuscitation Status: Resuscitation Status FULL:Full Resuscitation MAR Reviewed: Yes Vital Signs & Weight: Vital Signs (12 hours) Temp Pulse Resp BP BP Pulse Ox 12/15/17 08:23 75 175/72 H 12/15/17 08:22 75 175/72 H 12/15/17 08:21 75 175/72 H 12/15/17 08:05 97.8 F 75 20 175/72 H 93 L 12/15/17 08:00 97.8 F 75 20 93 L Weight Weight 236 lb 9.6 oz I&O: 12/14/17 12/15/17 12/16/17 06:59 06:59 06:59 Intake Total 1000 1220 Balance 1000 1220 Result Diagrams: 12/15/17 04:25 12/15/17 04:25 Additional Labs: Accuchecks 12/15/17 12/15/17 12/14/17 11:21 05:29 20:55 POC Glucose 415 H 364 H 232 H 12/14/17 12/14/17 12/13/17 15:54 11:16 19:58 POC Glucose 154 H 131 H 78 Microbiology 12/10/17 22:25 Urine bartlett catheter Urine Culture - Final NO GROWTH AT 36 HOURS 12/10/17 22:24 Nasopharynx - Pending Influenza Types A,B Direct EIA - Final 12/10/17 22:29 Venous blood - Left Arm Blood Culture - Preliminary Gram Positive Edgar 12/10/17 22:21 Venous blood - Left Arm Blood Culture - Preliminary NO GROWTH AT 48 HOURS Radiology Reviewed by me: Yes (KUB-no obstruction) Phys Exam - Physical Examination Constitutional: NAD HEENT: PERRLA, moist MMs, sclera anicteric, oral pharynx no lesions Neck: no nodes, no JVD, supple, full ROM Respiratory: no wheezing, no rales, no rhonchi, clear to auscultation bilateral Cardiovascular: RRR, no significant murmur Gastrointestinal: soft, non-tender disteneded ,+ve Bowel sounds Musculoskeletal: no edema, pulses present Neurological: non-focal, normal sensation, moves all 4 limbs Psychiatric: normal affect, A&O x 3 Skin: no rash Dx/Plan (1) Hyperkalemia Code(s): E87.5 - HYPERKALEMIA Status: Acute (2) PNA (pneumonia) Code(s): J18.9 - PNEUMONIA, UNSPECIFIED ORGANISM Status: Acute Qualifiers: Laterality: bilateral Comment: cap (3) Acute metabolic encephalopathy Code(s): G93.41 - METABOLIC ENCEPHALOPATHY Status: Resolved (4) Chronic anemia Code(s): D64.9 - ANEMIA, UNSPECIFIED Status: Chronic (5) DM type 2 (diabetes mellitus, type 2) Status: Chronic Qualifiers: Diabetes mellitus complication status: with hypoglycemia Diabetes mellitus complication detail: without coma Diabetes mellitus termite treater insulin use: with care home use Qualified Code(s): E11.649 - Type 2 diabetes mellitus with hypoglycemia without coma; Z79.4 - group home (current) use of insulin; Z79.4 - watermelon harvesting supervisor (current) use of insulin; Z79.4 - watermelon harvesting supervisor (current) use of insulin; Z79.4 - watermelon harvesting supervisor (current) use of insulin (6) ESRD (end stage renal disease) on dialysis Code(s): N18.6 - END STAGE RENAL DISEASE; Z99.2 - DEPENDENCE ON RENAL DIALYSIS Status: Chronic (7) Obesity (BMI 30-39.9) Code(s): E66.9 - OBESITY, UNSPECIFIED Status: Chronic (8) Sepsis Code(s): A41.9 - SEPSIS, UNSPECIFIED ORGANISM Status: Acute Qualifiers: Sepsis type: sepsis due to unspecified organism Qualified Code(s): A41.9 - Sepsis, unspecified organism (9) Hyponatremia Code(s): E87.1 - HYPO-OSMOLALITY AND HYPONATREMIA Status: Acute Comment: erick pseudo d/t hyperglycemia - Plan continue antibiotics, PT/OT, respiratory therapy, incentive spirometry, out of bed/ambulate, DVT proph w/SCDs cont IV ABx. clinically better.erick GOOD home in am w PO Abx -: add laxatives .non obstructing KUB. -: am labs.supportive care -: appreciate ID & Pulm input. -: OP f/u w Ct chest in 6 weeks For Pulm nodules. * .labs discussed w Dt. Castro.HD tomorrow. * will give Insulin w dextrose for high potassium & monitor Review of Systems - Review of Systems Constitutional: negative: fever, chills, sweats, weakness, malaise, other ENT: negative: Ear Pain, Ear Discharge, Nose Pain, Nose Discharge, Nose Congestion, Mouth Pain, Mouth Swelling, Throat Pain, Throat Swelling, Other Respiratory: negative: Cough, Dry, Shortness of Breath, Hemoptysis, SOB with Excertion, Pleuritic Pain, Sputum, Wheezing Cardiovascular: negative: chest pain, palpitations, orthopnea, paroxysmal nocturnal dyspnea, edema, light headedness, other Gastrointestinal: Abdominal Pain, Constipation. negative: Nausea, Vomiting, Diarrhea, Melena, Hematochezia, Other Genitourinary: negative: Dysuria, Frequency, Incontinence, Hematuria, Retention , Other Musculoskeletal: negative: Neck Pain, Shoulder Pain, Arm Pain, Back Pain, Hand Pain, Leg Pain, Foot Pain, Other Skin: negative: Rash, Lesions, [place], Bruising, Other Neurological: negative: Weakness, Numbness, Incoordination, Change in Speech, Confusion, Seizures, Other - Medications/Allergies Allergies/Adverse Reactions: Allergies Allergy/AdvReac Type Severity Reaction Status Date / Time banana [Banana] Allergy Verified 04/19/14 19:13 Penicillins Allergy Verified 09/06/13 14:16 Medications: Current Medications Acetaminophen (Tylenol) 1,000 mg PO Q6H PRN PRN Reason: Headache/Fever or Mild Pain Last Admin: 12/14/17 18:07 Dose: 1,000 mg Amlodipine Besylate (Norvasc) 10 mg PO DAILY [facility] Last Admin: 12/15/17 08:21 Dose: 10 mg Aspirin (Aspirin Chewable) 81 mg PO DAILY [facility] Last Admin: 12/15/17 08:21 Dose: 81 mg Calcium Acetate (Phoslo) 667 mg PO TID-[facility] Last Admin: 12/15/17 08:22 Dose: 667 mg Carvedilol (Coreg) 25 mg PO BID-[facility] Last Admin: 12/15/17 08:23 Dose: 25 mg Clonidine (Catapres) 0.1 mg PO Q4H PRN PRN Reason: Systolic BP > 180 Clopidogrel Bisulfate (Plavix) 75 mg PO DAILY [facility] Last Admin: 12/15/17 08:21 Dose: 75 mg Dextrose/Water (Dextrose 50%) 25 gm SLOW IVP PRN PRN PRN Reason: Hypoglycemia Last Admin: 12/14/17 04:40 Dose: 25 gm Epoetin Branden (Procrit) 7,500 units SC Q7D [facility] Last Admin: 12/11/17 12:13 Dose: 7,500 units Famotidine (Pepcid) 20 mg PO DAILY [facility] Last Admin: 12/15/17 08:21 Dose: 20 mg Glucagon (Glucagon) 1 mg IM PRN PRN PRN Reason: Hypoglycemia Hydralazine HCl (Apresoline) 10 mg SLOW IVP Q4H PRN PRN Reason: Systolic BP > 180 Last Admin: 12/13/17 15:22 Dose: 10 mg Hydralazine HCl (Apresoline) 25 mg PO TID [facility] Last Admin: 12/15/17 08:22 Dose: 25 mg Dextrose/Water (D5w) 1,000 mls @ 0 mls/hr IV .Q0M PRN; As Directed PRN Reason: Hypoglycemia Cefepime HCl 1 gm/ Syringe 10 mls @ 120 mls/hr SLOW IVP Q24HR@2100 [facility] Last Admin: 12/14/17 21:05 Dose: 10 mls Vancomycin HCl 1.25 gm/ Sodium (Chloride) 250 mls @ 166.667 mls/hr IVPB WILLCALL PRN PRN Reason: IF VANC LEVEL <= 5.0 Vancomycin HCl 1 gm/ Device 200 mls @ 200 mls/hr IVPB WILLCALL PRN PRN Reason: IF VANC LEVEL >5 AND <=10 Vancomycin HCl 750 mg/ Sodium (Chloride) 250 mls @ 250 mls/hr IVPB WILLCALL PRN PRN Reason: IF VANC LEVEL >10 AND <= 15 Last Admin: 12/13/17 10:53 Dose: 250 mls Vancomycin HCl 500 mg/ Sodium (Chloride) 100 mls @ 100 mls/hr IVPB WILLCALL PRN PRN Reason: IF VANC LEVEL >15 AND <=20 Insulin Human Lispro (Humalog) 0 units SC .MILD SLIDING SCALE PRN PRN Reason: Mild Correctional Scale Last Admin: 12/15/17 11:45 Dose: 6 unit Insulin Human Lispro (Humalog) 0 units SC .BEDTIME SLIDING SC PRN PRN Reason: Bedtime Correctional Scale Lubiprostone (Amitiza) 8 mcg PO BID [facility] Last Admin: 12/15/17 08:22 Dose: 8 mcg Metoclopramide HCl (Reglan) 10 mg PO TIDPRN PRN PRN Reason: Nausea Last Admin: 12/15/17 11:05 Dose: 10 mg Hold Vancomycin For (Level >20) 0 each FS .AT DIALYSIS PRN PRN Reason: HOLD VANC IF LEVEL > 20 Ondansetron HCl (Zofran Odt) 4 mg PO Q6H PRN PRN Reason: Nausea/Vomiting Ondansetron HCl (Zofran) 4 mg IVP Q6H PRN PRN Reason: Nausea/Vomiting Timolol Maleate (Timoptic 0.5% Oph Soln) 1 drop EA EYE BID [facility] Last Admin: 12/15/17 08:23 Dose: 1 drop
[2017-12-15] MEDS ORDERED: Polyethylene Glycol 3350 17 GM Packet PO PRN (13:55)
[2017-12-15] MEDS ORDERED: Dextrose 50% Abboject 50 ML SYRINGE SLOW IVP PRN (13:56)
[2017-12-15] MEDS ORDERED: Insulin Regular 300 UNITS/3 ML VIAL SC SCH (14:00)
[2017-12-15] MEDS: Acetaminophen 500 MG TAB PO PRN (14:18)
--- NOTE | 2017-12-15 18:48 | PRG ---
DATE OF SERVICE: 12/15/2017 SERVICE: Pulmonary Medicine. INTERVAL HISTORY: The patient is doing fine from a respiratory standpoint. He continues to have a l ittle bit of confusion. It is slowly clearing. He had a little bit of abdominal discomfort today. A KUB was done, but did not demonstrate any specific bowel gas pattern. He feels like he needs to coffey ve a bowel movement, but is having a hard time going. Otherwise, there have been no overnight events . PHYSICAL EXAMINATION: VITAL SIGNS: Afebrile, pulse 67, blood pressure 145/70, respirations 20, saturation 93% on room air. GENERAL: The patient is awake and alert, in no apparent distress. LUNGS: Excellent air entry. No prolonged expiratory phase is present. Dependent crackles are minim al. HEART: Normal rate, regular. ABDOMEN: Soft. Distended. Bowel sounds are positive. There is no rebound or guarding. MUSCULOSKELETAL: No cyanosis or clubbing. There is no pitting in the bilateral lower extremities. GENITOURINARY: No [place]. NEUROLOGIC: Grossly nonfocal. LABORATORY DATA: WBC 7.5, hemoglobin 10.0, platelets 149,000. Creatinine 11.41 once again, BUN 57 a nd up trending, anion gap 22, bicarbonate 23. Chloride 86, potassium 5.8. Sodium 125 and down trend ing. Blood cultures are growing Corynebacterium in 1 out of 2. Urine culture and influenza are unre markable. IMAGING: KUB demonstrates no acute intra-abdominal process. ASSESSMENT: 1. Severe sepsis, improving. 2. Metabolic encephalopathy, resolving. 3. End-stage renal disease. 4. Community-acquired pneumonia, possible. 5. Pulmonary nodule versus infiltrate, I favor the latter. PLAN: The patient is doing fine from a respiratory perspective. His encephalopathy is slowly cleari ng. I would like for him to follow up with me in clinic in the outpatient setting in 6 weeks with a preclinic CT scan. At that time, we will also consider setting him up for a sleep study. At this po int, the patient has no further requirements for inpatient Pulmonary or Critical Care opinion. I renzo l sign off at this time. Please call with additional questions or concerns moving forward.
[2017-12-15] MEDS: Cefepime 1 GM in Syringe 10 ML SLOW IVP SCH (20:55)
[2017-12-16] MEDS: Acetaminophen 500 MG TAB PO PRN ×2 (01:26→22:06)
[2017-12-16] MEDS: Metoclopramide HCl 10 MG TAB PO PRN (03:17)
[2017-12-16] MEDS: HumaLOG 300 UNITS/3 ML VIAL SC PRN ×3 (04:44→22:22)
[2017-12-16 05:27] LABS: Anion Gap 27 mmol/L (10-20); BUN (Urea Nitrogen) 80 mg/dL (8.4-25.7); Calc. Creatinine Clearance 8 mL/min (70-130); Carbon Dioxide 20 mmol/L (23-31); Chloride 83 mmol/L (98-107); Estimated GFR-MDRD 4; Glucose 340 mg/dL (80-115); Potassium 6.5 mmol/L (3.5-5.1); Sodium 123 mmol/L (136-145)
--- NOTE | 2017-12-16 08:58 | PRG ---
DATE OF SERVICE: 12/16/2017 SUBJECTIVE: Mr. Reynolds is a 62-year-old male who was admitted for fever. He was diagnose d to have a pneumonia. We are supervising his dialysis. At the present time at I am at the bedside with the patient supervising his dialysis. His mentation is actually improved also. This morning's labs showed some hyperkalemia of potassium 6.5. No other complaints. PHYSICAL EXAMINATION: VITAL SIGNS: Blood pressure is 133/67, heart rate 68, respiratory rate 20, temperature 98.2, pulse o ximetry 93%. GENERAL: Awake, alert, comfortable, not in distress. SKIN: Adequate turgor. HEENT: He has pinkish conjunctivae, anicteric sclerae. NECK: No neck mass, no carotid bruits, no JVD. CHEST: No deformities. LUNGS: Clear breath sounds. HEART: Normal sinus rhythm. No murmur, no gallops, no rubs. ABDOMEN: Globular, soft, nontender, no masses. EXTREMITIES: No edema, no deformities. MEDICATIONS: 12/16/2017 - Reviewed. LABORATORY: 12/15/2017 - White count 7.5, hemoglobin 10. Sodium 123, potassium 6.5, chloride 83, ca rbon dioxide 20, BUN 80, creatinine 13.64, glucose 340, calcium 9.0. ASSESSMENT AND PLAN: 1. End-stage renal disease - stable. Continue current Saturday, Saturday, Saturday hemodialysis regime n with this patient. Tolerating said treatment. Max out fluid removal only as tolerated. 2. Hyperkalemia - using a 2-0 potassium bath and we will do a 1.0 potassium bath for 1 hour at least with this patient. Continue dietary restriction. 3. Hyponatremia - this could be related from the increased blood sugar. Hopefully, this will improv e with the dialysis. 4. Pneumonia. The patient currently being treated with IV vancomycin.
[2017-12-16 10:38] LABS: Vancomycin, Random 10.1 ug/mL (See Comment)
[2017-12-16] MEDS: Clopidogrel Bisulfate 75 MG TAB PO SCH (11:03)
[2017-12-16] MEDS: Amlodipine 10 MG TAB PO SCH (11:03)
[2017-12-16] MEDS: Lubiprostone 8 MCG CAP PO SCH ×2 (11:03→21:53)
[2017-12-16] MEDS: hydrALAZINE 25 MG TAB PO SCH ×3 (11:04→21:53)
[2017-12-16] MEDS: Famotidine 20 MG TAB PO SCH (11:04)
[2017-12-16] MEDS: Carvedilol 25 MG TAB PO SCH ×2 (11:04→16:53)
[2017-12-16] MEDS: Timolol 0.5% Ophth Soln 5 ml Bottle EA EYE SCH ×2 (11:05→22:04)
[2017-12-16 11:37] LABS: HBSAg Index 0.13 S/CO (0-0.99); Hep B Surf Ag Non-Reactive S/CO (NonReactive)
[2017-12-16] MEDS: Calcium Acetate 667 MG CAP PO SCH ×3 (13:34→16:53)
--- NOTE | 2017-12-16 14:02 | PDOC.PN ---
- Subjective Encounter Start Date: 12/16/17 Encounter Start Time: 14:01 Subjective: s/p dialysis ,feels better. - Objective Resuscitation Status: Resuscitation Status FULL:Full Resuscitation MAR Reviewed: Yes Vital Signs & Weight: Vital Signs (12 hours) Temp Pulse Resp BP 12/16/17 11:04 64 174/67 H 12/16/17 11:03 64 12/16/17 07:00 98.3 F 68 20 Weight Weight 237 lb 3.2 oz I&O: 12/15/17 12/16/17 12/17/17 06:59 06:59 06:59 Intake Total 1220 1520 Balance 1220 1520 Result Diagrams: 12/15/17 04:25 12/16/17 04:49 Additional Labs: Accuchecks 12/16/17 12/16/17 12/15/17 11:16 04:35 20:55 POC Glucose 210 H 341 H 280 H 12/15/17 12/15/17 16:33 14:12 POC Glucose 223 H 290 H Phys Exam - Physical Examination Constitutional: NAD HEENT: PERRLA, moist MMs, sclera anicteric, oral pharynx no lesions Neck: no nodes, no JVD, supple, full ROM Respiratory: no wheezing, no rales, no rhonchi, clear to auscultation bilateral Cardiovascular: RRR, no significant murmur Gastrointestinal: soft, non-tender, no distention, positive bowel sounds Musculoskeletal: no edema, pulses present Neurological: non-focal, normal sensation, moves all 4 limbs Psychiatric: normal affect, A&O x 3 Skin: no rash Dx/Plan (1) Hyperkalemia Code(s): E87.5 - HYPERKALEMIA Status: Acute (2) Hyponatremia Code(s): E87.1 - HYPO-OSMOLALITY AND HYPONATREMIA Status: Acute Comment: nelsonley pseudo d/t hyperglycemia (3) High anion gap metabolic acidosis Code(s): E87.2 - ACIDOSIS Status: Acute (4) PNA (pneumonia) Code(s): J18.9 - PNEUMONIA, UNSPECIFIED ORGANISM Status: Acute Qualifiers: Laterality: bilateral Comment: cap (5) Acute metabolic encephalopathy Code(s): G93.41 - METABOLIC ENCEPHALOPATHY Status: Resolved (6) Chronic anemia Code(s): D64.9 - ANEMIA, UNSPECIFIED Status: Chronic (7) DM type 2 (diabetes mellitus, type 2) Status: Chronic Qualifiers: Diabetes mellitus complication status: with hypoglycemia Diabetes mellitus complication detail: without coma Diabetes mellitus fci insulin use: with black puller use Qualified Code(s): E11.649 - Type 2 diabetes mellitus with hypoglycemia without coma; Z79.4 - USP (current) use of insulin; Z79.4 - USP (current) use of insulin; Z79.4 - academic hospitalist (current) use of insulin; Z79.4 - academic hospitalist (current) use of insulin (8) ESRD (end stage renal disease) on dialysis Code(s): N18.6 - END STAGE RENAL DISEASE; Z99.2 - DEPENDENCE ON RENAL DIALYSIS Status: Chronic (9) Obesity (BMI 30-39.9) Code(s): E66.9 - OBESITY, UNSPECIFIED Status: Chronic (10) Sepsis Code(s): A41.9 - SEPSIS, UNSPECIFIED ORGANISM Status: Acute Qualifiers: Sepsis type: sepsis due to unspecified organism Qualified Code(s): A41.9 - Sepsis, unspecified organism - Plan continue antibiotics, PT/OT, respiratory therapy, incentive spirometry, out of bed/ambulate, DVT proph w/SCDs incraese ISS as blood sugar very high. -: high Potassium & AG [place] acidosis-s/p HD today.rechecl in am.nephrology -: restart statin,Imdur,elavil. -: HH set up done.erick Raymond in am if lytes/blood sugars improved * . Review of Systems - Review of Systems Constitutional: negative: fever, chills, sweats, weakness, malaise, other ENT: negative: Ear Pain, Ear Discharge, Nose Pain, Nose Discharge, Nose Congestion, Mouth Pain, Mouth Swelling, Throat Pain, Throat Swelling, Other Respiratory: negative: Cough, Dry, Shortness of Breath, Hemoptysis, SOB with Excertion, Pleuritic Pain, Sputum, Wheezing Cardiovascular: negative: chest pain, palpitations, orthopnea, paroxysmal nocturnal dyspnea, edema, light headedness, other Gastrointestinal: negative: Nausea, Vomiting, Abdominal Pain, Diarrhea, Constipation, Melena, Hematochezia, Other Genitourinary: negative: Dysuria, Frequency, Incontinence, Hematuria, Retention , Other Musculoskeletal: negative: Neck Pain, Shoulder Pain, Arm Pain, Back Pain, Hand Pain, Leg Pain, Foot Pain, Other Neurological: negative: Weakness, Numbness, Incoordination, Change in Speech, Confusion, Seizures, Other - Medications/Allergies Allergies/Adverse Reactions: Allergies Allergy/AdvReac Type Severity Reaction Status Date / Time banana [Banana] Allergy Verified 04/19/14 19:13 Penicillins Allergy Verified 09/06/13 14:16 Medications: Current Medications Acetaminophen (Tylenol) 1,000 mg PO Q6H PRN PRN Reason: Headache/Fever or Mild Pain Last Admin: 12/16/17 01:26 Dose: 1,000 mg Amlodipine Besylate (Norvasc) 10 mg PO DAILY [facility] Last Admin: 12/16/17 11:03 Dose: 10 mg Aspirin (Aspirin Chewable) 81 mg PO DAILY [facility] Last Admin: 12/16/17 11:04 Dose: 81 mg Calcium Acetate (Phoslo) 667 mg PO TID-[facility] Last Admin: 12/16/17 13:34 Dose: 667 mg Carvedilol (Coreg) 25 mg PO BID-[facility] Last Admin: 12/16/17 11:04 Dose: 25 mg Clonidine (Catapres) 0.1 mg PO Q4H PRN PRN Reason: Systolic BP > 180 Clopidogrel Bisulfate (Plavix) 75 mg PO DAILY [facility] Last Admin: 12/16/17 11:03 Dose: 75 mg Dextrose/Water (Dextrose 50%) 25 gm SLOW IVP PRN PRN PRN Reason: Hypoglycemia Last Admin: 12/14/17 04:40 Dose: 25 gm Dextrose/Water (Dextrose 50%) 25 gm SLOW IVP PRN PRN PRN Reason: Hypoglycemia Epoetin Branden (Procrit) 7,500 units SC Q7D [facility] Last Admin: 12/11/17 12:13 Dose: 7,500 units Famotidine (Pepcid) 20 mg PO DAILY [facility] Last Admin: 12/16/17 11:04 Dose: 20 mg Glucagon (Glucagon) 1 mg IM PRN PRN PRN Reason: Hypoglycemia Hydralazine HCl (Apresoline) 10 mg SLOW IVP Q4H PRN PRN Reason: Systolic BP > 180 Last Admin: 12/13/17 15:22 Dose: 10 mg Hydralazine HCl (Apresoline) 25 mg PO TID [facility] Last Admin: 12/16/17 11:04 Dose: 25 mg Dextrose/Water (D5w) 1,000 mls @ 0 mls/hr IV .Q0M PRN; As Directed PRN Reason: Hypoglycemia Cefepime HCl 1 gm/ Syringe 10 mls @ 120 mls/hr SLOW IVP Q24HR@2100 [facility] Last Admin: 12/15/17 20:55 Dose: 10 mls Vancomycin HCl 1.25 gm/ Sodium (Chloride) 250 mls @ 166.667 mls/hr IVPB WILLCALL PRN PRN Reason: IF VANC LEVEL <= 5.0 Vancomycin HCl 1 gm/ Device 200 mls @ 200 mls/hr IVPB WILLCALL PRN PRN Reason: IF VANC LEVEL >5 AND <=10 Vancomycin HCl 750 mg/ Sodium (Chloride) 250 mls @ 250 mls/hr IVPB WILLCALL PRN PRN Reason: IF VANC LEVEL >10 AND <= 15 Last Admin: 12/13/17 10:53 Dose: 250 mls Vancomycin HCl 500 mg/ Sodium (Chloride) 100 mls @ 100 mls/hr IVPB WILLCALL PRN PRN Reason: IF VANC LEVEL >15 AND <=20 Insulin Human Lispro (Humalog) 0 units SC .MILD SLIDING SCALE PRN PRN Reason: Mild Correctional Scale Last Admin: 12/16/17 13:34 Dose: 3 unit Insulin Human Lispro (Humalog) 0 units SC .BEDTIME SLIDING SC PRN PRN Reason: Bedtime Correctional Scale Last Admin: 12/15/17 21:02 Dose: 3 unit Lubiprostone (Amitiza) 8 mcg PO BID [facility] Last Admin: 12/16/17 11:03 Dose: 8 mcg Metoclopramide HCl (Reglan) 10 mg PO TIDPRN PRN PRN Reason: Nausea Last Admin: 12/16/17 03:17 Dose: 10 mg Hold Vancomycin For (Level >20) 0 each FS .AT DIALYSIS PRN PRN Reason: HOLD VANC IF LEVEL > 20 Ondansetron HCl (Zofran Odt) 4 mg PO Q6H PRN PRN Reason: Nausea/Vomiting Ondansetron HCl (Zofran) 4 mg IVP Q6H PRN PRN Reason: Nausea/Vomiting Polyethylene Glycol (Miralax) 17 gm PO DAILYPRN PRN PRN Reason: Constipation Timolol Maleate (Timoptic 0.5% Ophth Soln) 1 drop EA EYE BID [facility] Last Admin: 12/16/17 11:05 Dose: 1 drop
[2017-12-16] MEDS ORDERED: HumaLOG 300 UNITS/3 ML VIAL SC PRN (14:03)
[2017-12-16] MEDS ORDERED: Dextrose 50% Abboject 50 ML SYRINGE SLOW IVP PRN (14:03)
[2017-12-16] MEDS ORDERED: Dextrose 5% in Water 1,000 ML IV PRN (14:03)
--- NOTE | 2017-12-16 14:27 | PRG ---
DATE OF SERVICE: 12/16/2017 SERVICE: Pulmonary Medicine. INTERVAL HISTORY: The patient is doing fine from a respiratory standpoint. He denies any current fe vers, chills, nausea or vomiting. Otherwise, he continues to make small improvement. He is oriented x2-10/15. He says it was 2016, but otherwise, had the date right and understood the circumstances. Taj espinoza does not remember the things that brought him to the hospital, though. PHYSICAL EXAMINATION: VITAL SIGNS: Afebrile, pulse 68, blood pressure 174/67, respirations 20, saturation 93% on room air. GENERAL: The patient is awake and alert, in no apparent distress. LUNGS: Decent air entry. There is no prolonged expiratory phase or wheezing present. HEART: Normal rate, regular. ABDOMEN: Soft, nontender, nondistended. Bowel sounds are positive. MUSCULOSKELETAL: No cyanosis or clubbing. There is trace pitting in the bilateral lower extremities . LABORATORY DATA: Creatinine 13.6, BUN 80, anion gap 27, bicarbonate 20, potassium 6.5, sodium 123. Blood cultures growing Corynebacterium in 1 out of 2. Urine culture and influenza are unremarkable. ASSESSMENT: 1. Severe sepsis, resolved. 2. Metabolic encephalopathy. 3. End-stage renal disease. 4. Community-acquired pneumonia, possible. 5. Pulmonary nodule versus infiltrate. PLAN: Pulmonary Critical Care will sign off. He will need a repeat CT of the chest in 6 weeks. We will set him up for a sleep study at that time. Please call with additional questions or concerns rosio estebang forward.
[2017-12-16] MEDS ORDERED: Atorvastatin Calcium 20 MG TAB PO SCH (21:00)
[2017-12-16] MEDS: Cefepime 1 GM in Syringe 10 ML SLOW IVP SCH (22:05)
[2017-12-16 22:37] VITALS: TEMP 98.2
--- NOTE | 2017-12-16 22:58 | PRG ---
DATE OF SERVICE: 12/16/2017 SUBJECTIVE: The patient has been walking around without difficulty. Some pain in the medial malleol us left foot, less facial pain, some rhinorrhea, but not purulent. No chest pain, no dyspnea, no vom iting, hematemesis or melena. OBJECTIVE: VITAL SIGNS: T-max 100.9 two days ago, he has been afebrile since. Blood pressure 130/60, pulse 64. GENERAL: Chronically ill appearing. HEENT: Ocular movements conjugate. Mild tenderness in facial area and areas of contusion. No bruis ing. LUNGS: With symmetric clear breath sounds. HEART: S1, S2, regular rate. ABDOMEN: Soft, not distended. EXTREMITIES: Left medial malleolus has an area of erythema, which is quite tender to palpation, isidra ures about 2.5 cm. LABORATORY DATA: White cell count 7.5, hemoglobin 10, platelets 149. Echocardiogram with EF 55% to 60%, normal valves. Microbiology with Corynebacterium 1 out of 2 cultures likely a contaminant. IMAGING STUDIES: Abdomen and pelvis CT with peripheral opacity right lung base abutting the pleura a ppears somewhat solid 1.5 x 0.9 cm and a nodular mass left lower lobe measuring 7 mm, punctate nonobs tructing calculi bilateral. There is a mass in the inferior pole of the left kidney, also marked enl argement of prostate gland. The patient was seen by Dr. Bernard and he recommended followup of those nodular infiltrates. ASSESSMENT AND PLAN: Chills and fever with thrombocytopenia and leukocytosis, which has improved wit h antimicrobial therapy. The blood cultures are negative. He is currently on cefepime and vancomyci n and the differential diagnosis again includes an infectious syndrome with bacteremia and the lung n odule lesions versus malignancy causing those findings, which appears to be less likely, but not rule d out. He will have to have followup of those areas in the outpatient setting. In the meantime, I w ould probably transition him to oral quinolone adjusted for renal function plus vancomycin given acco rding to sliding scale and dialysis in the outpatient setting for another 2 weeks approximately. He may have recrudescence of fever, possibility of endocarditis appears to be less likely though. Follo wup imaging studies to follow up those lung lesions. He will need evaluation of prostate gland and t hat kidney mass.
[2017-12-17 06:03] LABS: Anion Gap 22 mmol/L (10-20); BUN (Urea Nitrogen) 63 mg/dL (8.4-25.7); Calc. Creatinine Clearance 10 mL/min (70-130); Calcium 9.5 mg/dL (7.8-10.44); Carbon Dioxide 23 mmol/L (23-31); Chloride 90 mmol/L (98-107); Estimated GFR-MDRD 5; Glucose 383 mg/dL (80-115); Potassium 5.2 mmol/L (3.5-5.1); Sodium 130 mmol/L (136-145)
[2017-12-17 08:10] LABS: Vancomycin, Trough 10.1 ug/mL
--- NOTE | 2017-12-17 08:37 | PRG ---
DATE OF SERVICE: 12/17/2017 RENAL MEDICINE SUBJECTIVE: Mr. Reynolds is a 62-year-old male with ESRD. He is undergoing hemodialysis. We are doing a 2-hour dialysis treatment with him. He shortened his treatment yesterday. He was charmaine te confused yesterday at the end of the treatment. This morning, he is more awake and alert. No new complaints. No chest pain or shortness of breath. PHYSICAL EXAMINATION: VITAL SIGNS: Blood pressure is 162/64, heart rate 67, respiratory rate 20, temperature 98.2, pulse o ximetry 91% - on room air. GENERAL: Awake, alert, comfortable, not in distress. SKIN: Adequate turgor. HEENT: He has pinkish conjunctivae, anicteric sclerae. NECK: No neck mass, no carotid bruits, no JVD. CHEST: No deformities. LUNGS: Decreased breath sounds. HEART: Normal sinus rhythm. No murmurs, no gallops, no rubs. ABDOMEN: Globular, soft, nontender, no masses. EXTREMITIES: No edema, no deformities. MEDICATIONS: Medications of 12/17/2017 reviewed. LABORATORY DATA: Laboratories of 12/15/2017; white count 7.5, hemoglobin 10. On 12/17/2017, sodium 130, potassium 5.2, chloride 90, carbon dioxide 23, BUN 63, creatinine 11.31. Glucose 383, calcium 9.5. ASSESSMENT AND PLAN: 1. Hyponatremia - dilutional - much improved with dialysis. 2. Mild hyperkalemia, improved. Potassium is noted at 5.2 and yesterday this was 6.5. Currently us ing a 2-0 potassium bath. 3. End-stage renal disease, stable. We will continue 3 times a week hemodialysis. He received extr a hemodialysis due to the fact that he shortened his treatment. 4. Pneumonia, on IV antibiotics. 5. Mental status change happen much improved. He still has some intermittent confusion. Recheck CAM[facility] [employer] and base met in a.m.
[2017-12-17] MEDS: Vancomycin HCl 750 MG in Sodium Chloride 0.9% 250 ML 250 ML IVPB PRN (08:50)
[2017-12-17] MEDS ORDERED: Amitriptyline HCl 25 MG TAB PO SCH (09:00)
[2017-12-17] MEDS ORDERED: Non-Formulary Item 1 EACH (Ranitidine Hcl [Ranitidine Hcl] 150 MG) PO SCH (09:00)
[2017-12-17] MEDS: Amlodipine 10 MG TAB PO SCH (10:28)
[2017-12-17] MEDS: Carvedilol 25 MG TAB PO SCH (10:29)
[2017-12-17] MEDS: Famotidine 20 MG TAB PO SCH (10:29)
[2017-12-17] MEDS: Calcium Acetate 667 MG CAP PO SCH ×2 (10:29→12:02)
[2017-12-17] MEDS: Clopidogrel Bisulfate 75 MG TAB PO SCH (10:29)
[2017-12-17] MEDS: Lubiprostone 8 MCG CAP PO SCH (10:29)
[2017-12-17] MEDS: hydrALAZINE 25 MG TAB PO SCH (10:29)
[2017-12-17] MEDS: Acetaminophen 500 MG TAB PO PRN (10:35)
[2017-12-17] MEDS: Timolol 0.5% Ophth Soln 5 ml Bottle EA EYE SCH (11:56)
[2017-12-17] MEDS: HumaLOG 300 UNITS/3 ML VIAL SC PRN (11:56)
[2017-12-17 12:05] VITALS: BP 133/66
--- NOTE | 2017-12-17 13:27 | DIS ---
DATE OF ADMISSION: 12/11/2017 DATE OF DISCHARGE: 12/17/2017 PRIMARY CARE PHYSICIAN: Dr. Tony Zavaleta. DISCHARGE DISPOSITION: Home with home health through [facility]. CONDITION AT THE TIME OF DISCHARGE: Stable and improved. DISCHARGE DIAGNOSES: 1. Bilateral pneumonia. 2. Acute metabolic encephalopathy. 3. End-stage renal disease, on hemodialysis. 4. Hyperkalemia, resolved. 5. Hyponatremia due to hyperglycemia likely resolved. 6. Anion gap metabolic acidosis, resolved from hemodialysis. 7. Anemia of chronic kidney disease. 8. Diabetes mellitus type 2. 9. Obesity with a BMI of 30 to 39. 10. Sepsis. DISCHARGE MEDICATIONS: Levofloxacin 250 mg every other day for 2 weeks, vancomycin every other day f or 2 weeks per sliding scale with dialysis and resume following home medication, PhosLo 1 capsule t.i .d., NovoLog as needed, Humalog as needed, timolol eyedrops, Amitiza 8 mcg p.o. b.i.d., tramadol as n eeded, ranitidine 150 mg daily, metoclopramide 10 mg p.o. t.i.d. p.r.n., Imdur 30 mg daily, Zyrtec da isai, Elavil 25 mg daily, vitamin D2 daily, Neurontin 600 p.o. b.i.d. and 600 at bedtime, Epogen 7500 units every 7 days, Plavix 75 mg daily, Coreg 25 mg p.o. b.i.d., Lipitor 200 mg daily, aspirin 81 mg daily, amlodipine 10 mg daily, CoQ10 of 100 mg daily, hydralazine 25 mg p.o. t.i.d. CONSULTATIONS: Inhouse include: 1. Nephrology, Dr. Castro. 2. Infectious Disease, Dr. Lim. 3. Pulmonary medicine, Dr. Bernard. PROCEDURES IN THE HOSPITAL: Include: 1. Maintenance hemodialysis. 2. CT scan of the brain upon presentation, which is negative for any acute intracranial abnormality. 3. Ankle x-ray upon presentation, which is negative for left ankle, which is negative for any osseou s abnormality. 4. Transthoracic echocardiogram which shows EF of 55% to 60%, mild paradoxical septal motion, otherw ise unremarkable. 5. CT scan of the abdomen and pelvis, which showed pulmonary nodules in both lower lobe, right lower lobe measuring 1.5 cm and a smaller nodule in the left lower lobe. Increased inferior renal pole hy podensity measuring 1.5 cm on the left side and ligated prostatomegaly with very thickened small vesi cles. 6. Bilateral lower extremity Doppler ultrasound, which is negative for any DVT. 7. A repeat ankle x-ray on 12/14/2017 of left ankle, which is once again negative for fracture. 8. Abdominal x-ray on 12/15/2017 which is negative for any acute intra-abdominal pathology. No obst ruction. HISTORY OF PRESENTING ILLNESS: Mr. Reynolsd is a pleasant 62-year-old male who dialysis dep endent, with history of diabetes, dyslipidemia, coronary artery disease, who presented to the emergen cy room for complaints of altered mental status. He was noted to have a fever of 101 as well as WBCs in 12,[address] scan done at the presentation did not show any acute changes. He was admitted with a presumptive diagnosis of sepsis and was started on empiric IV antibiotics. Please see admissi on history and physical for further details. HOSPITAL COURSE: Blood cultures were obtained and remained negative. Infectious Disease saw the pat ient and recommended getting a CT scan of the abdomen and pelvis and lower extremity ultrasound. Thi s was done, which showed bilateral pulmonary nodules and Pulmonary Medicine was consulted with regard s to this. Their recommendations are that this most likely is pneumonia and infiltrates. These will need to be followed up as an outpatient with repeat CT scan in 4 to 6 weeks. He was continued on br oad spectrum IV antibiotics, which were later consolidated by Infectious Disease. He improved signif icantly and was continued on maintenance hemodialysis while in the hospital by Dr. Castro. Eventually, he was back to his baseline and his mentation has improved. Home health was arranged for him and he was discharged back under the care of his family. He was seen and examined prior to discharge. Physical exam include: PHYSICAL EXAMINATION: VITAL SIGNS: This morning, temperature 98.2, pulse of 67, respirations 16, saturating 92% on room ai r, blood pressure 133/66. No acute distress, awake, alert, oriented x3, eager to go home. CHEST: Clear to auscultation without any wheezing, rales, or rhonchi. HEART: Rate rhythm is regular without any murmurs or gallops. ABDOMEN: Soft, nontender, nondistended, positive bowel sounds. EXTREMITIES: Free of any cyanosis, clubbing, or edema. He is walking around in the hallway with the help of the physical therapist and he has good appetite and his bowels are moving normally. On the day of discharge, his bacterial cultures have remained negative with one out of two, blood cul ture positive for corynebacterium. This is most likely a contamination. His outpatient labs will be followed by Dr. Castro and Dr. Lim. Total time spent in the discharge of this patient 35 minutes.
== END 2017-12-17 12:35 | disposition home health service (06) | DRG 871 ==
LOC: ERS 22:07 → IMCU/EMU 12-11 00:30 → T4-B 12-12 10:18
PROVIDERS: ADMIT Family Medicine; ATTEND Family Medicine
PROC: 5A1D70Z Performance of Urinary Filtration, Intermittent, Less than 6 Hours Per Day (ICD-10-PCS; principal; 2017-12-17)
DX: A41.9 Sepsis, unspecified organism (principal); G93.49 Other encephalopathy; G93.41 Metabolic encephalopathy; I12.0 Hypertensive chronic kidney disease with stage 5 chronic kidney disease or end stage renal disease; J18.9 Pneumonia, unspecified organism; E11.22 Type 2 diabetes mellitus with diabetic chronic kidney disease; E11.40 Type 2 diabetes mellitus with diabetic neuropathy, unspecified; N18.6 End stage renal disease; E87.2 Acidosis; E87.1 Hypo-osmolality and hyponatremia; R65.20 Severe sepsis without septic shock; E87.5 Hyperkalemia; Z99.2 Dependence on renal dialysis; E11.65 Type 2 diabetes mellitus with hyperglycemia; D63.1 Anemia in chronic kidney disease; E66.9 Obesity, unspecified; Z68.39 Body mass index [BMI] 39.0-39.9, adult; E78.5 Hyperlipidemia, unspecified; M19.90 Unspecified osteoarthritis, unspecified site; D64.9 Anemia, unspecified
CPT/HCPCS: 36415; 36416; 51702; 70450; 71045; 74018; 74177; 80048; 80053; 80202; 81003; 81015; 83605; 85007; 85025; 85027; 87040; 87086; 87340; 90935; 93005; 93306; 93970; 96374; G0103; G0257; G8978-GP-CL; G8979-GP-CJ; J0360; J0692; J1200; J1815; J3370; J7050; Q4081

== ENCOUNTER 2018-01-30 15:57 | Outpatient (CLI) | payer MEDICARE, BC ==
[~2018-01-30 15:57] MED LIST: Iopamidol 370 76% 100 ML VIAL ONE
== END 2018-01-30 15:58 | disposition home or self-care (01) ==
LOC: BICCT 15:57
PROVIDERS: ATTEND Internal Medicine
DX: R91.1 Solitary pulmonary nodule (principal); N28.89 Other specified disorders of kidney and ureter; N28.1 Cyst of kidney, acquired; I70.90 Unspecified atherosclerosis; K44.9 Diaphragmatic hernia without obstruction or gangrene
CPT/HCPCS: 71250; 74170

== ENCOUNTER 2018-02-12 10:34 | Outpatient (CLI) | payer MEDICARE, BC ==
--- NOTE | 2018-02-12 13:26 | MRI ---
MRI BRAIN WITHOUT CONTRAST: HISTORY: Ataxia, unspecified. Falling. Double vision. COMPARISON: 04/19/2014 FINDINGS: There are foci of T2 prolongation in the periventricular white matter, consistent with mild chronic s mall vessel ischemic disease. No restricted diffusion is seen. The ventricular size is appropriate, and the basilar cisterns are patent. No infarct, hemorrhage, midline shift, or abnormal extraaxial fluid collection is seen. There is mucosal disease in the paranasal sinuses and fluid in the mastoid air cells. IMPRESSION: No evidence of acute intracranial process. POS: [facility]
== END 2018-02-12 10:35 | disposition home or self-care (01) ==
LOC: MRI 10:34
PROVIDERS: ATTEND Internal Medicine Infectious Disease
DX: R27.0 Ataxia, unspecified (principal)
CPT/HCPCS: 70551